=== PATIENT | female | born 1955 | race Caucasian/White ===

== ENCOUNTER 2022-04-21 08:23 | Outpatient (CLI) | payer OTHER, SELFPAY ==
[2022-04-21 16:23] LABS: Basophils Absolute Auto 0.05 K/uL (0.00-0.30); Basophils Percent Auto 0.7 % (0.0-3.0); Eosinophils Absolute Auto 0.26 K/uL (0.00-0.50); Eosinophils Percent Auto 3.4 % (0.0-7.0); Hematocrit 43.4 % (33.0-51.0); Hemoglobin* 14.6 gm/dL (12.0-16.0); Immature Granulocytes Abs Auto 0.01 K/uL (0.00-0.30); Immature Granulocytes Pct Auto 0.1 %; Lymphocytes Percent Auto 17.5 % (20-44); Mean Corpuscular HGB Conc 34 gm/dL (32-36); Mean Corpuscular Hemoglobin 32 pg (26-34); Mean Corpuscular Volume 95 fL (80-100); Monocytes Percent Auto 9.3 % (0.0-11.0); Neutrophils Absolute Auto 5.21 K/uL (1.7-7.0); Platelet Count* 327 K/uL (140-440); RDW Coefficient of Variation % 12.9 % (11.5-15.5); Red Blood Count 4.55 m/uL (4.00-5.20); White Blood Count* 7.55 K/uL (4.50-11.00)
[2022-04-21 16:34] LABS: Slide Review Reflex No
[2022-04-21 16:35] LABS: Cholesterol* 201 mg/dL (90-199); Glucose* 99 mg/dL (60-115)
[2022-04-21 16:36] LABS: HDL Cholesterol* 70 mg/dL (>=50); LDL Cholesterol Calculated 116 mg/dL (<100); Triglycerides* 70 mg/dL (40-149)
== END 2022-04-21 08:24 | disposition home or self-care (01) ==
PROVIDERS: PCP Nurse Practitioner Family; Visit Provider Nurse Practitioner Family
DX: E78.9 Disorder of lipoprotein metabolism, unspecified (principal); Z13.0 Encounter for screening for diseases of the blood and blood-forming organs and certain disorders involving the immune mechanism; Z13.1 Encounter for screening for diabetes mellitus
CPT/HCPCS: 80061; 82947; 85025

== ENCOUNTER 2022-06-30 08:03 | Outpatient (CLI) | payer OTHER, SELFPAY ==
--- NOTE | 2022-06-30 08:15 | CRLHL7_ITS ---
For Patients: As a result of the Cures Act, medical imaging exams and procedure reports are released immediately into your electronic medical record. You may view this report before your referring provider. If you have questions, please contact your health care provider. BILATERAL SCREENING MAMMOGRAM WITH COMPUTER-AIDED DETECTION AND TOMOSYNTHESIS TECHNIQUE: CC and MLO views were obtained. These mammographic images have been obtained using full-field digital technique. These mammographic images were interpreted with the benefit of computer-aided detection. Breast Tomosynthesis was used in this interpretation. COMPARISON FILM: 06/09/21, 04/19/18, 11/03/15. FINDINGS: The breasts are heterogeneously dense, which may obscure small masses IMPRESSION: There is no radiographic evidence for malignancy. ASSESSMENT: BI-RADS Category 2: Benign RECOMMENDATION: Routine screening mammogram in 1 year. A lay language report of this examination will be provided to the patient. Bina Coats M.D. Diagnostic/Breast Radiologist [email or web address] GEORGETTE/lee ann Transcribed: 1:17 p.lisa nance/Dictated by: Bina Coats MD @ 06/30/2022 9:26:00 AM (Electronically Signed)
== END 2022-06-30 08:04 | disposition home or self-care (01) ==
LOC: MAMMO 08:09
PROVIDERS: PCP Nurse Practitioner Family; Visit Provider Nurse Practitioner Family
DX: Z12.31 Encounter for screening mammogram for malignant neoplasm of breast (principal); R92.2 Inconclusive mammogram
CPT/HCPCS: 77063; 77067

== ENCOUNTER 2023-05-22 08:28 | Outpatient (CLI) | payer MEDICARE, BC, SELFPAY ==
--- OUTSIDE RECORDS SUMMARY | 2023-05-22 08:39 | XMS_ITS | Encounter Summary ---
Author Name Unknown Organization [facility] er Address [address] [place] [address] Care Team Providers Care Lead Vulcanizing Operator Name Role Phone Arden Solis MD Primary Care Provider [phone] Reason for Visit * Reason Comments ECG test Encounter Details Date Type Department Care Team (Late st Contact Info) Description 02/21/2023 9:00 AM CDT Procedure visit [facility] [address] [place] [address] Pre-op evaluation Social History Tobacco Use Types Packs/Day Years Used Date Smoking Tobacco: Never Smokeless Tobacco: Never Alcohol Use Standard Drinks/Week Comments Yes 4 (1 standard drink = 0.6 oz pur e alcohol) occasional Humiliation, Afraid, Rape, and Kick questionnair e Answer Date Recorded Fear of Current or Ex-Partner No Emotionally Abused No 11/14/2018 Physically Abused No 11/14/2018 Sexually Abused No 11/14/2018 Social Connection and Isolat ion Panel [NHANES] Answer Date Recorded Frequency of Communication w ith Friends and Family More than three times a week 11/14/2018 Frequency of Social Gatherin gs with Friends and Family Once a week 11/14/2018 Attends Gnosticist Services Never 11/14 Active Member of Clubs or Organizations No 11/14/2018 Attends Club or Organization Meetings Never 11/14/2018 Marital Status 11/14/2018 AUDIT-C Answer Date Recorded Frequency of Alcohol Consumption Never 03/19/2018 Average Number of Drinks Not on file 018 Frequency of Binge Drinking Not on file 03/07 Overall Financial Resource Strain (CARDIA) Answe r Date Recorded Difficulty of Paying Living Expenses Not hard at all 11/14/2018 PHQ-2 Answer Date Recorded PHQ-9 Total Score 0 10/22/2020 [facility] - Occupational Stress Questionnaire Answer Date Recorded Feeling of Stress Not at all 11/14/2018 Exercise Vital Sign Answer Date Recorde d Days of Exercise per Week 5 days 2018 Minutes of Exercise per Session 40 min 11/14/2018 Hunger Vital Sign Answer Date Recorded Worried About Running Out of Food in the Last Ye ar Never true 11/14/2018 Ran Out of Food in the Last Year Never true 11/14/2018 PRAPARE - Transportation Answer Date Re corded Lack of Transportation (Medical) No 11/14/2018 Lack of Transportation (Non-Medical) No 11/14/2018 Education Answer Date Recorded What is the highest level of school you have completed or the highest degree you have received? Associate degree: occupational, technical, or vocational program 11/14/2018 Sex and Gender Information Value Date Recorded Sex Assigned at Not on file Gender Identity Not on file Sexual Orientation Not on file documented as of this encounter Progress Notes * Debi Tsang RN - 02/21/2023 9:00 AM CDT Nurse Procedure Note Procedures ECG done, and patient tolerated it well. ECG transmitted to cardiology per order of Dr. Baeza. Patient denied any chest pain, shortness of breath, palpitations, and dizziness. documented in this encounter Plan of Treatment Not on file documented as of this encounter Procedures Procedure Name Priority Date/Time Associated Diagnosis Comments ECG 12-LEAD Routine 02/21/2023 Pre-op evaluation documented in this encounter Results * ECG 12 lead (02/21/2023) Santiago Baeza MD ECG ORDERABLES [facility] documented in this encounter Visit Diagnoses Diagnosis Pre-op evaluation documented in this encounter Care Teams Lead Vulcanizing Operator Relationship Specialty Start Date End Date Arden Solis MD [address] [place] [address] PCP - General 08/23/21 documented as of this encounter
--- OUTSIDE RECORDS SUMMARY | 2023-05-22 08:39 | XMS_ITS | Encounter Summary ---
Author Name Unknown Organization [facility] er Address [address] [place] [id number] Care Team Providers Care Hand Therapist Name Role Phone Arden Solis MD Primary Care Provider [phone] Reason for Visit * Auth/Cert (Routine) Specialty Diagnoses / Procedures Referred By Contac t Referred To Contact Diagnoses Hammertoe of second toe of left foot Bunion of left foot Hammertoe of second toe of left foot [M20.42] Bunion of left foot [M21.612] Procedures HAMMERTOE REPAIR 2nd toe left foot OSTEOTOMY METATARSAL 2nd left foot BUNIONECTOMY SILVER left foot Referral ID Status Reason Start Date Expiration Date Visits Re quested Visits Authorized [id number] 1 1 Encounter Details Date Type Department Care Team (Latest Contact Info) Description 03/09/2023 10:41 AM CDT - 03/09/2023 3:54 PM CDT Hospital Encounter [facility] Hospital Operating Room [address] [place] [id number] Lalit Sorensen, DPYeimi [address] [place] [phone] Hav (hallux abducto valgus), left (Primary Dx) Discharge Disposition: Home or Self Care Social History Tobacco Use Types Packs/Day Years [...] and Family Once a week 11/14/2018 Attends [employer] Never 11/14 Active Member of Clubs [...] Date Recorded PHQ-9 Total Score 0 10/22/2020 [facility] - Occupational [...] on file documented as of this encounter Last Filed Vital Signs Vital Sign Reading Time Taken Comments Blood Pressure 145/74 03/09/2023 3:30 PM CDT Pulse 60 03/09/2023 3:30 PM CDT Temperature 36.6 ??C (97.9 ??F) 03/09/2023 2:55 PM CD T Respiratory Rate 16 03/09/2023 3:30 PM CDT Oxygen Saturation 96% 03/09/2023 3:30 PM CDT Inhaled Oxygen Concentration - - Weight 67.1 kg (147 lb 14.9 oz) 023 10:53 AM CDT Height - - Body Mass Index 23.22 02/21/2023 8:09 AM CDT documented in this encounter Discharge Instructions * Attachments The following attachments cannot be sent through Care Everywhere. * [facility] - AFTER YOUR FOOT/ANKLE SURGERY documented in this encounter Medications at Time of Discharge Medication Sig Dispensed Refills Start Date End Date albuterol HFA (Ventolin HFA) 108 (90 Base) MCG/ACT inhalerIndications:Cough Inhale 2 puffs every 6 (six) hours if needed (cough) 2 puffs q 4-6 hours as needed 18 g 0 10/07/2019 alendronate (FOSAMAX) 70 MG tablet Take 1 tablet (70 mg total) by mouth 1 (one) time per week 0 12/07/2022 BIOTIN PO Take 6,000 mcg by mouth 1 (one) time each day 0 CALCIUM PO Take 400 mg by mouth daily 0 FISH OIL-KRILL OIL PO Take 2 tablets by mouth 1 (one) time each day supplement 0 Magnesium 125 MG capsule Take 1 capsule by mouth 1 (one) time each day 0 Multiple Vitamins-Minerals (WOMENS PACK PO) Take 1 tablet by mouth 1 (one) time each day 0 TURMERIC PO Take 1,100 mg by mouth 1 (one) time each day 0 documented as of this encounter OR Notes * Op Note - Lalit Sorensen DPM - 03/09/2023 12:36 PM CDT Operative Note Date: 03/09/2023 Location: [facility] OR Name: Dipika Alexis, : 1955, Diagnosis Pre-op Diagnosis * Hammertoe of second toe of left foot [M20.42] * Bunion of left foot [M21.612] Post-op Diagnosis * Hammertoe of second toe of left foot [M20.42] * Bunion of left foot [M21.612] Preliminary CPT code(s): No CPT code documented in operative note Procedure(s): HAMMERTOE REPAIR, OSTEOTOMY METATARSAL, BUNIONECTOMY SILVER left foot Surgeon(s) and Role: * Lalit Sorensen DPM - Primary Procedure Summary Anesthesia: Monitored Anesthesia Care ASA: II Estimated Blood Loss: 5 mL Staff: Steel Pan Form Placing Supervisor: Lidya Amaro Steel Pan Form Placing Supervisor: DARIUSZ Lowe Scrub Person: Caterina Patterson; Aurora Cunninghamcheli Indications: Dipika Alexis is an 67 y.o. female who is having surgery for Hammertoe of second toe of left foot [M20.42] Bunion of left foot [M21.612]. Field Artillery Operations Specialist Role: None Intraoperative Findings: Hallux rigidus left , hds 2nd toe left foot , plantar plate tear 2nd mpj left foot Implants Type Name Action Serial No. IMPLANT MEDIUM CANNULATED PHALINX HAMMERTOE - [id number] Implanted Procedure Details: Patient brought the operating placed operating table supine position IV line intact for MAC anesthesia local anesthetic administered utilizing approximately 20 cc 0.5 smirking 2% lidocaine with localattrition block to the left foot foot prepped and draped usual aseptic manner and hemostasis achieved lysing pneumatic tourniquet about the left ankle attention directed dorsal medial aspect the leftfirst MPJ linear longitudinal incision made incision deepened via sharp dissection care taken to retract any vital structures a bleeders cut cauterized ligated carried deep to the first MPJ where thedorsal medial exostosis was resected power sagittal saw rongeured and rasped smooth rigidus noted but almost a complete fusion and patient has no pain in the MPJ and the remaining joint was left intact closure was completed with 4-0 Vicryl subcu closure 4-0 Vicryl skin closure 4-0 nylon directed second MPJ linear longitudinal incision made extending to the second hammertoe incision deepened via sharp dissection care taken to retract any vital structures any bleeders cut cauterized ligated sandra d deep to the second metatarsal phalangeal joint the incision was deepened to the second MPJ capsule second metatarsal delivered operative field dorsal medial exostosis resected osteotomy completed and the capital fragment transposed proximally the distractor put in place and the plantar plate tearwas identified isolated and sutures were placed to the plantar plate 2 holes were drilled in the proximal phalanx and the suture lines were run through the proximal phalanx with 3 opposition of the plantar plate to the phalanx and a complete repair bruise were then placed in the metatarsal head forfixation of the osteotomy with 2 breakaway screws and the area was rongeured dressed smooth closurecompleted with 4-0 Vicryl subcu closure 4-0 Vicryl skin closure 4-0 nylon attention directed to hammertoe where a incision was made at the PIPJ joint the head of the proximal phalanx resected and thebase of the middle phalanx resected reaming of the proximal and distal aspects was completed and the hammertoe implant phalanx was placed in after wire was placed visualization with C arm showed good apposition good alignment K wire was driven through the implant and capped the closure was then completed with 4-0 nylon and Adaptic sterile compression dressing was applied to the left foot the tourniquet warmth and perfusion return all digits simultaneously patient procedure anesthesia well return postanesthesia recovery vital signs stable stable condition visualization with C arm showed good apposition good alignment Complications: None; patient tolerated the procedure well. Disposition: PACU - hemodynamically stable. Condition: stable Lalit Sorensen DPM * Brief Op Note - Lalit Sorensen DPM - 03/09/2023 12:36 PM CDT Date: 03/09/2023 Location: [facility] OR Name: Dipika Alexis, : 1955, Diagnosis Pre-op Diagnosis * Hammertoe of second toe of left foot [M20.42] * Bunion of left foot [M21.612] Post-op Diagnosis * Hammertoe of second toe of left foot [M20.42] * Bunion of left foot [M21.612] Preliminary CPT code(s): No CPT code documented in operative note Procedure(s): HAMMERTOE REPAIR, OSTEOTOMY METATARSAL, BUNIONECTOMY SILVER left foot Surgeon(s) and Role: * Lalit Sorensen DPM - Primary Procedure Summary Anesthesia: Monitored Anesthesia Care ASA: II Estimated Blood Loss: 5 mL Staff: Steel Pan Form Placing Supervisor: Lidya Greene Relief Steel Pan Form Placing Supervisor: DARIUSZ Lowe Scrub Person: Caterina Patterson; Aurora Carvalho Indications: Dipika Alexis is an 67 y.o. female who is having surgery for Hammertoe of second toe of left foot [M20.42] Bunion of left foot [M21.612]. Findings: Hallux rigidus with dorsal medial exostosis , HDS 2nd toe left with plantar plate tear 2nd mpj left foot Complications: None; patient tolerated the procedure well. Disposition: PACU - hemodynamically stable. Condition: stable Attending Attestation: I was present and scrubbed for the entire procedure. Lalit Sorensen DPM documented in this encounter Plan of Treatment Not on file documented as of this encounter Procedures Procedure Name Priority Date/Time Associated Diagnosis Comments FL C-ARM FLUOROSCOPY UP TO 1 HOUR Routine 03/09/2023 2:54 PM CDT BUNIONECTOMY SILVER 03/09/2023 1 2:36 PM CDT Hammertoe of second toe of left foot Bunion of left foot Special Needs *Times given 03/08 SE* *Joe Garcia notified 02/26 SE* BILL toe implants , naheed repair kit OSTEOTOMY METATARSAL 03/09/2023 12:36 PM CDT Hammertoe of second toe of left foot Bunion of left foot Special Needs *Times given 03/08 SE* *Joe Garcia notified 02/26 SE* BILL toe implants , naheed repair kit HAMMERTOE REPAIR 03/09/2023 12:3 6 PM CDT Hammertoe of second toe of left foot Bunion of left foot Special Needs *Times given 03/08 SE* *Joe Garcia notified 02/26 SE* BILL toe implants , naheed repair kit documented in this encounter Results * C-arm Fluoroscopy up to 1 hour (03/09/2023 2:54 PM CDT) Anatomical Region Laterality Modality Body Radiographic Claire ging 03/09/2023 2:54 PM CDT Impressions 03/09/2023 3:08 PM CDT IMPRESSION: C-ARM FLUOROSCOPY UP TO 1 HOUR 3 seconds of fluoroscopy time was used. Narrative 03/09/2023 3:08 PM CDT INDICATION: Intra Op Procedure Note Radha Cohen MD - 03/09/2023 INDICATION: Intra Op IMPRESSION: C-ARM FLUOROSCOPY UP TO 1 HOUR 3 seconds of fluoroscopy time was used. Lalit Jimenez Edu DPYeimi IMG FLUOROSCOPY [place] OCEDURES documented in this encounter Visit Diagnoses Diagnosis Hav (hallux abducto valgus), left- Primary documented in this encounter Administered Medications Inactive Administered Medications - up to 3 most recent administrations Medication Order MAR Action Action Date Dose Rate Site aprepitant (EMEND) capsule 40 mg 40 mg, Oral, Once, On Sun03/09/23 at 1230, For 1 dose, Preprocedure Given 03/09/2023 11:57 AM CDT 40 mg lactated Ringer's infusion 75 mL/hr, Intravenous, Continuous, Starting on Sun03/09/23 at 1130, For 5 days New Bag 03/09/2023 2:07 PM CDT Continued from Pre 03/09/2023 12:35 PM CDT 75 m L/hr New Bag 03/09/2023 11:10 AM CDT 75 mL/hr 75 mL/hr lidocaine 1% (XYLOCAINE) 1 % injection 10 mg 10 mg (1 mL), Subcutaneous, Once as needed, For IV start, Starting on Sun03/09/23 at 1047, For 5 days, Preprocedure oxyCODONE (ROXICODONE) immediate release tablet 5 mg 5 mg, Oral, Every 4 hours PRN, Pain 1-5, Starting on Sun03/09/23 at 1454, For 10 days, Phase II/On Unit, 1st Line. If inadequate response within 60 minutes, proceed to next-line agent for same PRN reason or contact provider if no further options ordered. Given 03/09/2023 3:06 PM CDT 5 mg sodium chloride 0.9 % flush 2 mL 2 mL, Intravenous, Every 8 hours PRN, line care, Starting on Sun03/09/23 at 1047, For 5 days, Preprocedure documented in this encounter Active and Recently Administered Medications Times are shown in CDT. Scheduled Medication Order 03/07/2023 03/08/2023 03/09/2023 aprepitant (EMEND) capsule 40 mg (COMPLETED) 40 mg, Oral, Once, On Sun03/09/23 at 1230, For 1 dose, Preprocedure 1157 (Given - Provid er: Lorna Brown, TYRA) cefazolin (ANCEF) IVPB 2 g in 100 mL - premix (COMPLETED) 2 g, Intravenous, Administer over 30 Minutes, Once, On Sun03/09/23 at 1330, For 1 dose, Preprocedure, Administer within 60 minutes of incision., Indication: Surgical Site 1247 (Given - Provid er: Marcel Garrison APRN, JOSEFINA) Continuous Medication Order 03/07/2023 03/08/2023 03/09/2023 lactated Ringer's infusion 75 mL/hr, Intravenous, Continuous, Starting on Sun03/09/23 at 1130, For 5 days 1110 (New Bag - Prov ider: Anna Dang RN)1235 (Continued from Pre - Provider: Marcel Garrison APRN, JOSEFINA)1406 (Paused - Provider: Marcel Garrison APRN, CRNA - Comment: Switch to gravity)1407 (New Bag - Provider: aMrcel Garrison APRN, JOSEFINA)1453 (Anesthesia Volume Adjustment - Provider: FREDDIE Machado,[place],JOSEFINA) PRN Medication Order 03/07/2023 03/08/2023 03/09/2023 Bupivacaine 0.5% with Lidocaine 2% MIXED 1:1 in 20 mL (CANCELED) As needed, Starting on Sun03/09/23 at 1308, Intraprocedure 1308 (Given - Provid er: Lalit Sorensen DPM - Comment: Wasted remaining medication) lidocaine 1% (XYLOCAINE) 1 % injection 10 mg(Linked Group 1) 10 mg (1 mL), Subcutaneous, Once as needed, For IV start, Starting on Sun03/09/23 at 1047, For 5 days, Preprocedure oxyCODONE (ROXICODONE) immediate release tablet 5 mg 5 mg, Oral, Every 4 hours PRN, Pain 1-5, Starting on Sun03/09/23 at 1454, For 10 days, Phase II/On Unit, 1st Line. If inadequate response within 60 minutes, proceed to next-line agent for same PRN reason or contact provider if no further options ordered. 1506 (Given - Provid er: Anna Dang, TYRA) sodium chloride 0.9 % flush 2 mL(Linked Group 1) 2 mL, Intravenous, Every 8 hours PRN, line care, Starting on Sun03/09/23 at 1047, For 5 days, Preprocedure Linked Groups Order Group 1: Insert peripheral IV (CANCELED) Once, On Sun03/09/23 at 1048, For 1 occurrence, Preprocedure And Maintain IV access (CANCELED) Until discontinued, Starting on Sun03/09/23 at 1048, Until Specified, Preprocedure And Saline lock IV (CANCELED) Once, On Sun03/09/23 at 1048, For 1 occurrence, Preprocedure And sodium chloride 0.9 % flush 2 mLJump to med 2 mL, Intravenous, Every 8 hours PRN, line care, Starting on Sun03/09/23 at 1047, For 5 days, Preprocedure And lidocaine 1% (XYLOCAINE) 1 % injection 10 mgJump to med 10 mg (1 mL), Subcutaneous, Once as needed, For IV start, Starting on Sun03/09/23 at 1047, For 5 days, Preprocedure documented in this encounter Care Teams Hand Therapist Relationship Specialty Start Date End Date Arden Solis MD [address] [place] [address] PCP - General 08/23/21 documented as of this encounter
--- OUTSIDE RECORDS SUMMARY | 2023-05-22 08:39 | XMS_ITS | Encounter Summary ---
Author Name Unknown Organization [facility] er Address [address] [place] [address] Care Team Providers Care Local Operator Name Role Phone Arden Solis MD Primary Care Provider [phone] Reason for Visit * Reason Comments Pre-op Exam Encounter Details Date Type Department Care Team (Late st Contact Info) Description 02/21/2023 8:20 AM CDT Consult [facility] [address] [place] [address] Santiago Baeza MD [address] [place] [address] Pre-op evaluation (Primary Dx) Social History Tobacco Use Types Packs/Day Years [...] and Family Once a week 11/14/2018 Attends [employer] Services Never 11/14 Active Member of Clubs [...] Date Recorded PHQ-9 Total Score 0 10/22/2020 [facility] - Occupational [...] Sign Reading Time Taken Comments Blood Pressure 137/83 02/21/2023 8:09 AM CDT Pulse 70 02/21/2023 8:09 AM CDT Temperature 36.6 ??C (97.8 ??F) 02/21/2023 8:09 AM CD T Respiratory Rate 16 02/21/2023 8:09 AM CDT Oxygen Saturation 98% 02/21/2023 8:09 AM CDT Inhaled Oxygen Concentration - - Weight 70.7 kg (155 lb 13.8 oz) 02/21/2023 8:09 AM CDT Height 170 cm (5' 6.93) 02/21/2023 8:09 AM CDT Body Mass Index 24.46 02/21/2023 8:09 AM CDT documented in this encounter Progress Notes * Santiago Baeza MD - 02/21/2023 8:20 AM CDT Assessment/Plan Dipika Alexis is an 67 y.o. female. Here for a preoperative evaluation for HAMMERTOE REPAIR 2nd toe left foot, OSTEOTOMY METATARSAL 2nd left foot, BUNIONECTOMY SILVER left foot, LEFT. This surgery is scheduled to be performed by surgeon Edu on 03/09. The preoperative risk assessment has determined the following: No contraindications to planned surgery Dipika was seen today for pre-op exam. Diagnoses and all orders for this visit: Pre-op evaluation (Primary) Hammertoe of second toe of left foot Bunion of left foot HPI: Patient has had problems with nausea with anesthesia. No recent respiratory illnesses. No fever or chills. Not coughing or short of breath. No chest pain. No nausea vomiting or diarrhea. Current Outpatient Medications: alendronate (FOSAMAX) 70 MG tablet, Take 1 tablet (70 mg total) by mouth 1 (one) time per week, Disp: , Rfl: BIOTIN PO, Take 6,000 mcg by mouth 1 (one) time each day, Disp: , Rfl: CALCIUM PO, Take 400 mg by mouth daily, Disp: , Rfl: FISH OIL-KRILL OIL PO, Take 2 tablets by mouth 1 (one) time each day supplement, Disp: , Rfl: Multiple Vitamins-Minerals (WOMENS PACK PO), Take 1 tablet by mouth 1 (one) time each day, Disp: , Rfl: TURMERIC PO, Take 1,100 mg by mouth 1 (one) time each day, Disp: , Rfl: albuterol HFA (Ventolin HFA) 108 (90 Base) MCG/ACT inhaler, Inhale 2 puffs every 6 (six) hours if needed (cough) 2 puffs q 4-6 hours as needed (Patient not taking: Reported on 02/21/2023), Disp: 18 g, Rfl: 0 fluticasone (FLONASE) 50 MCG/ACT nasal spray, Administer 2 sprays into each nostril 1 (one) time each day (Patient not taking: Reported on 02/21/2023), Disp: 16 g, Rfl: 11 Magnesium 125 MG capsule, Take 1 capsule by mouth 1 (one) time each day (Patient not taking: Reported on 10/22/2020), Disp: , Rfl: montelukast (Singulair) 10 MG tablet, Take 1 tablet (10 mg total) by mouth 1 (one) time each day (Patient not taking: Reported on 02/21/2023), Disp: 90 tablet, Rfl: 3 Allergies: Patient has no known allergies. Past Surgical History: Procedure Laterality Date BUNIONECTOMY Bilateral CARPAL TUNNEL RELEASE THUMB ARTHROSCOPY Past Medical History: Diagnosis Date Arthritis Osteoporosis Varicella Visual impairment Family History Problem Relation Age of Onset Diabetes Mother Hypertension Mother Diabetes Brother Social History Socioeconomic History Marital status: Spouse name: Sudarshan Number of children: 2 Years of education: 12 Highest education level: Associate degree: occupational, technical, or vocational program Occupational History Occupation: [employer] Tobacco Use Smoking status: Never Smokeless tobacco: Never Vaping Use Vaping Use: Never used Substance and Sexual Activity Alcohol use: Yes Alcohol/week: 4.0 standard drinks Types: 3 Glasses of wine, 1 Standard drinks or equivalent per week Comment: occasional Drug use: No Sexual activity: Yes Partners: Male Review of Systems Objective Pulmonary Risk SpO2: 98 % Visit Vitals BP 137/83 Pulse 70 Temp 36.6 ??C (97.8 ??F) Resp 16 Ht 1.7 m (5' 6.93) Wt 70.7 kg (155 lb 13.8 oz) SpO2 98% BMI 24.46 kg/m?? Smoking Status Never BSA 1.83 m?? Physical Exam Vital signs are as per the chart Physical examination in general patient pleasant no apparent distress Skin clear Head is normcephalic, atraumatic Eyes conjunctivae clear ENT tympanic membranes translucent, good landmarks bilaterally. Oropharnyx without lesions Neck supple Lymph no significant cervical or supraclavicular adenopathy Heart regular rhythm without murmurs gallops or rubs Lungs clear to auscultation bilaterally Radiology Tests to be Ordered: EKG sinus bradycardia Additional Tests to be Ordered: Laboratory Tests to be Ordered: Special Note to Anesthesia if needed: Referrals/Consultations: Immunizations: Tetanus Influenza Comments: You should not drive for at least 24 hours after your surgery, or as instructed by your surgeon. Do NOT take ibuprofen, Aleve and Aspirin 7 days prior to surgery. Do NOT take vitamins or other nutritional supplements 7 days prior to surgery. You will receive detailed instructions from your doctor about which of your usual medications to take and which NOT to take before surgery. If you have been instructed to take any medications on the morning of surgery, take them with a small sip of water. Otherwise, remember to follow fasting guidelines as given to you by your surgeon. If you have been told that you will be going home after surgery and not staying overnight in the hospital, remember to bring a friend or family member with you the day of surgery who can stay with you during your recovery period and who can drive you home. Medication Instructions: documented in this encounter Plan of Treatment Not on file documented as of this encounter Results * ECG 12 lead (02/21/2023) Santiago Baeza MD ECG ORDERABLES [facility] documented in this encounter Visit Diagnoses Diagnosis Pre-op evaluation- Primary documented in this encounter Care Teams Local Operator Relationship Specialty Start Date End Date Arden Solis MD [address] [place] [address] PCP - General 08/23/21 documented as of this encounter
--- OUTSIDE RECORDS SUMMARY | 2023-05-22 08:39 | XMS_ITS | Clinical Summary ---
Author Name Unknown Organization [facility] Address [address] [place] [address] Care Team Providers Care Can Crimper Name Role Phone Unavailable Primary Care Provider Unavailabl e Source Comments Patient records contain information from all sites at [facility]. For routine questions regarding patient records, call [phone] during business hours, M-F 8:00 AM - 5:00 PM Central Time. Record requests for emergency care only can be directed to [phone] at any time.[facility] Allergies No known active allergies Medications Medication Sig Dispensed Refills Start Date End Date Status albuterol 90 mcg/actuation inhaler Inhale 2 puffs every 6 (six) hours as needed. 0 10/07/2019 Active alendronate (FOSAMAX) 70 mg tablet Every 7 Days 0 06/13/2021 Active cholecalciferol (VITAMIN D3) 1,250 mcg (50,000 Unit) capsule 0 Active cholecalciferol (VITAMIN D3) 125 mcg (5,000 Unit) capsule Take 1 tablet by mouth. 0 Active loratadine-pseudoep hedrine (CLARITIN-D 12-hour) 5-120 mg per 12 hr tablet Twice A Day 0 06/13/2021 Active montelukast (SINGULAIR) 10 mg tablet Bedtime 0 02/02/2021 Active biotin (Nakul Biotin) 10,000 mcg capsule Take 6,000 mcg by mouth daily. A gummy 0 Active TURMERIC ORAL Take 1,000 mg by mouth daily. 0 Active calcium carbonate (CALCIUM 500 ORAL) Take 600 mg by mouth daily. 0 Active sodium chloride-sodium bicarbonate (Neilmed Sinus Rinse Complete) nasal rinseIndications:Dr ip Post Nasal Administer 1 Application into each nostril 2 (two) times a day. 1 each 0 04/16/2023 Active fluticasone propionate (FLONASE) 50 mcg/actuation nasal sprayIndications:Dr omid Valdez Nasal Administer 2 sprays into each nostril daily. 16 g 11 04/16/2023 Active carbamide peroxide (DEBROX) 6.5 % otic solutionIndications :Cerumen Impacted Right Administer 5 drops into the right ear 2 (two) times a day for 7 days. Then once weekly until ENT follow-up 0 04/16/2023 04/23/2023 Active Problems No known active problems Encounters Date Type Department Care Team Description 04/16/2023 9:05 AM DAY CARE ATTENDANT Ancillary Procedure Department of Otorhinolaryngology 04/16/2023 8:30 AM DAY CARE ATTENDANT Comprehensive Visit Department of Otorhinolaryngology in [address] [phone] Manjeet Mobley M.D. Atypical Facial Pain (Primary Dx); Drip Post Nasal; Cerumen Impacted Right Discharge Disposition: Home or Self Care 04/12/2023 10:30 AM DAY CARE ATTENDANT Office Visit Department of Ophthalmology in [place], [place] [address] [place] [phone] Kevin Ceja M.D. 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 Tear Horseshoe Without Retinal Detachment Left (Primary Dx) 03/02/2023 Clinical Communication Department of Ophthalmology in [place], [place] [address] [place] [address] Prescheduling , Provider Triage (uec) from Last 3 Months Social History Tobacco Use Types Packs/Day Years Used Date Smoking Tobacco: Never Smokeless Tobacco: Never Tobacco Cessation:Counseling Given: Not Answered Alcohol Use Standard Drinks/Week Comments Yes 1 (1 standard drink = 0.6 oz pur e alcohol) per week Nutrition Answer Date Recorded Nutrition: EVOO Fat Source Unknown 08/01 Nutrition: Servings of Fruits/Vegetables per Day Not on file 08/01/2021 Dental Answer Date Recorded Dental: Regular Dentist Unknown 08/02/19 Sex and Gender Information Value Date Recorded Sex Assigned at Not on file Gender Identity Not on file Sexual Orientation Not on file Last Filed Vital Signs Vital Sign Reading Time Taken Comments Blood Pressure 120/68 08/23/2021 1:08 PM CDT Pulse 79 08/23/2021 1:08 PM CDT Temperature - - Respiratory Rate - - Oxygen Saturation - - Inhaled Oxygen Concentration - - Weight 70.8 kg (156 lb 1.4 oz) 08/23/2021 1:08 P M CDT Height 170.8 cm (5' 7.24) 08/23/2021 1:08 PM CD T Body Mass Index 24.27 08/23/2021 1:08 PM CDT Plan of Treatment Upcoming Encounters Date Type Department Care Team (Latest Contact Info) Description 06/18/2023 9:00 AM DAY CARE ATTENDANT Office Visit Department of Otorhinolaryngology in [place], [place] [facility] [place] [phone] Manjeet Mobley M.D. [address] [place] [phone] Discharge Disposition: Home or Self Care Health Maintenance Due Date Last Done Comments CT Colonography 1955 Cologuard 1955 Colonoscopy 1955 Colorectal Cancer Screening 1955 FIT 1955 Fasting Glucose for Diabetes Screening 1955 Hepatitis C Screening 1955 COVID-19 Vaccine (#1) 03/10/1956 Mammogram 08/26/1999 08/25/1998 Zoster Vaccines (2 of 3) 12/28/2015 11/02/2015 Influenza Vaccine (#1) 2023 Depression Screening (Annual PHQ-2) 05/07/2023 Fall Risk Screen (Annual) 05/07/2023 DTaP,Tdap,and Td Vaccines (2 - Td or Tdap) 11/18/2023 11/17/2013, 08/06/2003 Pneumococcal vaccine (65+ years) Completed 04/21/20 22 Procedures Procedure Name Priority Date/Time Associated Diagnosis Comments OTORHINOLARYNGOLOGY IMAGE EXAM Routine 04/16/2023 9:05 AM DAY CARE ATTENDANT PROPHYLAXIS OF RETINAL DETACHMENT, LASER - OS - LEFT EYE Routine 03/02/2023 5:22 PM CDT Tear Horseshoe Without Retinal Detachment Left OPHTHALMOLOGY IMAGE EXAM Routine 023 12:00 AM CDT from Last 3 Months Results * Otorhinolaryngology Image Exam-Otorhinolaryngology Image Exam (04/16/2023 9:05 AM DAY CARE ATTENDANT) 04/16/2023 9:04 AM DAY CARE ATTENDANT Narrative [facility] - 04/16/2023 9:41 AM DAY CARE ATTENDANT This order has been created and auto-finalized to support the import of images acquired without order. The clinical documentation to support these images can be found on the encounter that produced images. Provider Not In System IMG NON RAD IMAGI NG PROCEDURES [facility] NA * Prophylaxis of Retinal Detachment, Laser - OS - Left Eye (03/02/2023 5:22 PM CDT) Narrative [facility] OPHTHALMOLGY NON-IMAGING ORDERS - 03/02/2023 5:22 PM CDT Time Out Confirmed correct patient, procedure, site, and patient consented. Anesthesia Topical anesthesia was used. Pre/Post Procedure prep and meds used were Proparacaine 0.5% 1-10 drops. Laser Information Laser power was 300.00 milliwatts. Total spots was 412. It was a barricade pattern. Post-op The patient tolerated the procedure well. There were no complications. The patient received written and verbal post procedure care education. Kevin Ceja M.D. OPHTH CLINIC PROCED URES Performing Organization Address City/[facility]/ZIP Co de Phone Number OPHTHALMOLGY NON-IMAGING ORDERS * Unspecified-Ophthalmology Image Exam (03/02/2023 12:00 AM CDT) Narrative [facility] - 03/02/2023 3:27 PM CDT This order has been created and auto-finalized to support the import of images acquired without order. The clinical documentation to support these images can be found on the encounter that produced images. Provider Not In System IMG NON RAD IMAGI NG PROCEDURES Performing Organization Address [facility] Co de Phone Number [facility] NA from Last 3 Months
--- OUTSIDE RECORDS SUMMARY | 2023-05-22 08:39 | XMS_ITS | Encounter Summary ---
Author Name Unknown Organization [facility] [place] er Address [address] [place] [address] Care Team Providers Care Study Lead Name Role Phone Arden Solis MD Primary Care Provider [phone] Reason for Visit * Auth/Cert (Routine) Specialty [...] Expiration Date Visits Re quested Visits Authorized [id number] 1 Encounter Details Date Type Department Care Team (Late st Contact Info) Description 03/09/2023 12:35 PM CDT - 03/09/2023 4:25 PM CDT Surgery [facility] Operating Room [address] [place] [address] Lalit Sorensen, DPYeimi [address] [place] [phone] HAMMERTOE REPAIR 2nd toe left foot Surgery Details Date/Time Status Location OR Service Patient Class Case Cl ass Case Type Trauma Case? 03/09/23 12:35 PM Posted [facility] - Elective Panel 1 Procedure LRB Anes Op Region Wound Class Comments HAMMERTOE REPAIR 2nd toe left foot Left Monitored Anesthesia Care Class I/ Clean OSTEOTOMY METATARSAL 2nd left foot Left Monitored Anesthesia Care Class I/ Clean BUNIONECTOMY SILVER left foot Left Monitored Anesthesia Care Class I/ Clean Surgeon Surgeon Role Service Panel Lalit Sorensen, DPYeimi Primary Podiatry 1 Special Needs *Times given 03/08 SE* *Joe Garcia notified 02/26 SE* BILL toe implants , naheed repair kit documented in this encounter Social History Tobacco Use Types Packs/Day Years [...] and Family Once a week 11/14/2018 Attends [employer] Services Never 11/14 Active Member of Clubs [...] Date Recorded PHQ-9 Total Score 0 10/22/2020 [facility] Occupat ional Health - Occupational [...] cannot be sent through Care Everywhere. * [facility] - AFTER YOUR FOOT/ANKLE SURGERY [...] PM CDT Operative Note Date: 03/09/2023 Location: [facility] OR Name: Dipika Alexis, : 1955, Diagnosis [...] II Estimated Blood Loss: 5 mL Staff: Inside Trucker: Lidya Greene Relief Inside Trucker: DARIUSZ Lowe Scrub Person: Caterina Patterson; Aurora Carvalho Indications: Dipika Alexis is an 67 y.o. female who is having surgery for Hammertoe of second toe of left foot [M20.42] Bunion of left foot [M21.612]. Butcher Fish Role: None Intraoperative Findings: Hallux rigidus left , hds 2nd toe left foot , plantar plate tear 2nd mpj left foot Implants Type Name Action Serial No. IMPLANT MEDIUM CANNULATED PHALINX VAISHNAVI - [id number] Implanted Procedure Details: Patient brought the operating [...] 03/09/2023 12:36 PM CDT Date: 03/09/2023 Location: [facility] OR Name: Dipika Alexis, : 1955, Diagnosis [...] II Estimated Blood Loss: 5 mL Staff: Inside Trucker: Lidya Greene Relief Inside Trucker: DARIUSZ Lowe Scrub Person: Caterina Patterson; Aurora [...] seconds of fluoroscopy time was used. Lalit Sorensen DPYeimi IMG FLUOROSCOPY VT OCEDURES documented in this encounter Visit Diagnoses Diagnosis Hav (hallux abducto valgus), left- Primary Hammertoe of second toe of left foot Bunion of left foot Bunion documented in this encounter Administered Medications Inactive Administered Medications - up to 3 most recent administrations Medication Order MAR Action Action Date Dose Rate Site aprepitant (EMEND) capsule 40 mg 40 mg, Oral, Once, On Sun03/09/23 at 1230, For 1 dose, Preprocedure Given 03/09/2023 11:57 AM CDT 40 mg Bupivacaine 0.5% with Lidocaine 2% MIXED 1:1 in 20 mL As needed, Starting on Sun03/09/23 at 1308, Intraprocedure Given 03/09/2023 1:08 PM CDT 20 mL lactated Ringer's infusion 75 mL/hr, Intravenous, Continuous, [...] Preprocedure 1157 (Given - Provid er: Lorna Brown RN) cefazolin (ANCEF) IVPB 2 g in 100 mL - premix (COMPLETED) 2 g, Intravenous, Administer over 30 Minutes, Once, On Sun03/09/23 at 1330, For 1 dose, Preprocedure, Administer within 60 minutes of incision., Indication: Surgical Site 1247 (Given - Provid er: Marcel Garrison APRN, CRNA) Continuous Medication Order 03/07/2023 03/08/2023 03/09/2023 lactated Ringer's infusion 75 mL/hr, Intravenous, Continuous, Starting on Sun03/09/23 at 1130, For 5 days 1110 (New Bag - Prov ider: Anna Dang RN)1235 (Continued from Pre - Provider: Marcel Garrison APRN, JOSEFINA)1406 (Paused - Provider: Marcel Garrison APRN, CRNA - Comment: Switch to gravity)1407 (New Bag - Provider: Marcel F. Bladimir, SECRETARY OFFICE CLERK, LINE WALKER)1453 (Anesthesia Volume Adjustment - Provider: FREDDIE Machado,SECRETARY OFFICE CLERK,LINE WALKER) PRN Medication Order 03/07/2023 03/08/2023 03/09/2023 Bupivacaine [...] ordered. 1506 (Given - Provid er: Anna Dang RN) sodium chloride 0.9 % flush 2 mL(Linked [...] Preprocedure documented in this encounter Care Teams Study Lead Relationship Specialty Start Date End Date Arden Solis MD [address] [facility] [address] [place] [address] PCP - General 08/23/21 documented as of this encounter
--- OUTSIDE RECORDS SUMMARY | 2023-05-22 08:39 | XMS_ITS | Encounter Summary ---
Author Name Unknown Organization [facility] er Address [address] [place] [address] Care Team Providers Care Hydroelectric Plant Mechanical Engineer Name Role Phone Arden Solis MD Primary Care Provider [phone] Encounter Details Date Type Department Care Team (Latest Contact Info) Description 03/09/2023 Travel Social History Tobacco Use Types Packs/Day Years [...] and Family Once a week 11/14/2018 Attends [employer] Services Never 11/14 Active Member of Clubs [...] Date Recorded PHQ-9 Total Score 0 10/22/2020 [facility] - Occupational Stress [...] on file documented as of this encounter Plan of Treatment Not on file documented as of this encounter Visit Diagnoses Not on filedocumented in this encounter Care Teams Hydroelectric Plant Mechanical Engineer Relationship Specialty Start Date End Date Arden Solis MD [address] [place] [address] PCP - General 08/23/21 documented as of this encounter
--- OUTSIDE RECORDS SUMMARY | 2023-05-22 08:39 | XMS_ITS | Clinical Summary ---
Author Name Unknown Organization [facility] er Address [address] [place] [address] Care Team Providers Care Sanitarian Inspector Name Role Phone Arden Solis MD Primary Care Provider [phone] Allergies No known active allergies Medications Medication Sig Dispensed Refills Start Date End Date Status FISH OIL-KRILL OIL PO Take 2 tablets by mouth 1 (one) time each day supplement 0 Active Multiple Vitamins-Minerals (WOMENS PACK PO) Take 1 tablet by mouth 1 (one) time each day 0 Active Magnesium 125 MG capsule Take 1 capsule by mouth 1 (one) time each day 0 Active albuterol HFA (Ventolin HFA) 108 (90 Base) MCG/ACT inhalerIndications:Co ugh Inhale 2 puffs every 6 (six) hours if needed (cough) 2 puffs q 4-6 hours as needed 18 g 0 10/07/2019 Active Additional Information Patient not taking.Reported on 02/21/2023 fluticasone (FLONASE) 50 MCG/ACT nasal sprayIndications:Nasa l congestion Administer 2 sprays into each nostril 1 (one) time each day 16 g 11 10/25/2020 Active Additional Information Patient not taking.Reported on 02/21/2023 montelukast (Singulair) 10 MG tabletIndications:All ergic rhinitis, unspecified seasonality, unspecified trigger,Allergic conjunctivitis of both eyes Take 1 tablet (10 mg total) by mouth 1 (one) time each day 90 tablet 3 02/02/2021 Active Additional Information Patient not taking.Reported on 02/21/2023 alendronate (FOSAMAX) 70 MG tablet Take 1 tablet (70 mg total) by mouth 1 (one) time per week 0 12/07/2022 Active TURMERIC PO Take 1,100 mg by mouth 1 (one) time each day 0 Active CALCIUM PO Take 400 mg by mouth daily 0 Active BIOTIN PO Take 6,000 mcg by mouth 1 (one) time each day 0 Active Active Problems Problem Noted Date Diagnosed Date 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 No flaking, itching, erythema. Exam is normal, perhaps some thinning over the central vertex. She does have a varied diet, takes a daily multivitamin, no medications that would cause alopecia. Recommend laboratory evaluation including TSH, CBC, ferritin, B12. Fasting glucose was obtained last year and was normal. If all labs are normal she may consider topical minoxidil 5% foam daily, and she may obtain this [id number]. If desiring further evaluation could consider dermatology referral. This was discussed, will get back to her with labs when available. Primary osteoarthritis of hand 07/17/2017 Age-related osteoporosis wit hout current pathological fracture 11/09/2015 Last Assessment & Plan: DEXA scan 2016 shows T score -2.6 of the lumbar spine, -2.1 of the hips. Diagnosed with osteoporosis. She took alendronate 70 mg weekly for just 1 year, then stopped, under the impression that this was a 1 year only treatment. Discussed, educated, new prescription for alendronate 70 mg weekly was given. Recommend repeating DEXA scan next year after she has had to 4 years of treatment to ensure no worsening. She will continue adequate vitamin D supplementation. Hearing loss 05/17/2015 Encounters Date Type Department Care Team Description 03/09/2023 12:35 PM CDT - 03/09/2023 4:25 PM CDT Surgery [facility] Operating Room [address] [place] [address] Lalit Sorensen DPM HAMMERTOE REPAIR 2nd toe left foot 03/09/2023 12:35 PM CDT Anesthesia Event [facility] Operating Room [address] [place] [address] Berto Tirado MD Ahern, Timothy F., APRN, JOSEFINA 03/09/2023 10:41 AM CDT - 03/09/2023 3:54 PM CDT Hospital Encounter [facility] Operating Room [address] [place] [address] Lalit Sorensen, DPM Hav (hallux abducto valgus), left (Primary Dx) Discharge Disposition: Home or Self Care 03/09/2023 Travel 02/21/2023 9:00 AM CDT Procedure visit [facility] [address], [place] [address] Pre-op evaluation 02/21/2023 8:20 AM CDT Consult [facility] [address] [place] [id number] Santiago Baeza MD Pre-op evaluation (Primary Dx) 02/21/2023 8:00 AM CDT Clinical Support [facility] [address] [place] [address] from Last 3 Months Immunizations Name Administration Dates Next Due Hep A / Hep B 07/02/2001,02/06/2001,12/25/2000 Td 08/06/2003 Tdap 11/17/2013 Zoster 11/02/2015 Family History Medical History Relation Comments Diabetes Brother 1 Diabetes Mother Hypertension Mother Relation Status Comments Brother 1 Alive Brother 2 Alive Brother 3 Alive Daughter Alive Father Alive Mother Alive Sister 1 Alive Sister 2 Alive Sister 3 Alive Sister 4 Alive Son Alive Social History Tobacco Use Types Packs/Day Years [...] and Family Once a week 11/14/2018 Attends Scientologist Services Never 11/14 Active Member of Clubs [...] Date Recorded PHQ-9 Total Score 0 10/22/2020 [facility] - Occupational Stress [...] 14.9 oz) 023 10:53 AM CDT Height 170 cm (5' 6.93) 02/21/2023 8:09 AM CDT Body Mass Index 23.22 02/21/2023 8:09 AM CDT Plan of Treatment Health Maintenance Due Date Last Done Comments CT Colonography 1955 FIT-DNA 1955 Sigmoidoscopy 1955 iFOBT 1955 COVID-19 Vaccine (#1) 09/07/1960 Pneumococcal Vaccine: 65+ Years (1 of 2 - PCV) 09/07/1961 Fall Risk Performed 09/07/1973 Medicare Annual Wellness Visit (AWV) 09/07/1973 Zoster Vaccines (1 of 2) 12/28/2015 11/02/2015 Mammogram 04/19/2019 04/19/2018, 11/03/2015, 11/03/2015 Colonoscopy 09/30/2020 09/30/2010, 09/30/2010 Colorectal Cancer Screening 09/30/2020 Bone Density Scan 11/02/2020 11/03/2015 Influenza Vaccine (#1) 2023 DTaP,Tdap,and Td Vaccines (2 - Td or Tdap) 11/18/2023 11/17/2013, 08/06/2003 Pap Smear Discontinued 11/02/2015 HPV Vaccines Aged Out No longer eligi ble based on patient's age to complete this topic Medical Devices Implanted Type Area Robotype Operator Device Identifier Shelf Expiration Date Model / Serial / Lot Implant Medium Cannulated Phalinx Hammertoe - [id number] Implanted:Qty: 1 on 03/09/2023 by Lalit Sorensen DPM at [facility] Left: Foot [id number] / / NA Procedures Procedure Name Priority Date/Time Associated Diagnosis [...] foot Special Needs *Times given 03/08 SE* *oJe Garcia notified 02/26 SE* BILL toe implants , naheed repair kit HAMMERTOE REPAIR 03/09/2023 12:3 6 PM CDT Hammertoe of second toe of left foot Bunion of left foot Special Needs *Times given 03/08 SE* *Joe Garcia notified 02/26 SE* BILL toe implants , naheed repair kit ECG 12-LEAD Routine 02/21/2023 Pre-op evaluation from Last 3 Months Results * C-arm Fluoroscopy up to 1 [...] of fluoroscopy time was used. Lalit Sorensen DPM IMG FLUOROSCOPY [place] OCEDURES * ECG 12 lead (02/21/2023) Santiago Baeza MD ECG ORDERABLES [facility] from Last 3 Months Advance Directives For more information, please contact: [phone] Latest Code Status on File Code Status Date Activated Date Inactivated Comments Full Code 03/09/2023 2:55 PM 03/09/2023 5:54 PM Care Teams Sanitarian Inspector Relationship Specialty Start Date End Date Arden Solis MD [address] [facility] [address] [place] [address] PCP - General 08/23/21
--- OUTSIDE RECORDS SUMMARY | 2023-05-22 08:39 | XMS_ITS | Encounter Summary ---
Author Name Unknown Organization [facility] er Address [address] [place] [address] Care Team Providers Care Trumpet Teacher Name Role Phone Arden Solis MD Primary Care Provider [phone] Encounter Details Date Type Department Care Team (Late st Contact Info) Description 02/21/2023 8:00 AM CDT Clinical Support [facility] [address] [place], [place] [phone] Social History Tobacco Use Types Packs/Day Years [...] and Family Once a week 11/14/2018 Attends Episcopalian Services Never 11/14 Active Member of Clubs [...] Date Recorded PHQ-9 Total Score 0 10/22/2020 [facility] Occupat ional Health - Occupational Stress [...] on file documented as of this encounter OR Notes * Perioperative Nursing Note - Jimena Ramírez RN - 02/21/2023 8:00 AM CDT Pertinent Medical History: Diabetic: no If yes: Insulin Dependent: No Oral Agents: No Metabolic: no Hematologic: no Cardiac: no Pulmonary: no CPAP: no Inhaler: no Anesthesia/Transfusion: Prior Anesthesia Reaction: No Pertinent Family History: no Social History: Alcohol: Yes, describe: 4/week Tobacco: No Substance use: No : No Test Indicated: No FYI Notes: documented in this encounter Miscellaneous Notes * Preprocedure Instructions - Jimena Ramírez RN - 02/21/2023 8:00 AM CDT Patient has had anesthesia in the past, has history of ponv, no known family history of anesthesia issues. Verified surgery is with Dr. Sorensen on left foot. 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 Patient denied cardiac and respiratory issues and is not a smoker. Reminded to follow primary care provider instructions on which medications to take on day of surgery. Information and instructions for surgery given including NPO guidelines. Covid 19 initial screening completed. Questions answered, encouraged to call PreOp nursing with any further questions or concerns. documented in this encounter Plan of Treatment Not on file documented as of this encounter Visit Diagnoses Not on filedocumented in this encounter Care Teams Trumpet Teacher Relationship Specialty Start Date End Date Arden Solis MD [address] [place] [address] PCP - General 08/23/21 documented as of this encounter
--- OUTSIDE RECORDS SUMMARY | 2023-05-22 08:39 | XMS_ITS | Referral Summary ---
Author Name Unknown Organization [facility] Address [address] [place] [address] Care Team Providers Care Medical Laboratory Technician Name Role Phone Unavailable Primary Care Provider Unavailabl e Source Comments Patient records contain information from all sites at [facility]. For routine questions regarding patient records, call [phone] during business hours, M-F 8:00 AM - 5:00 PM Central Time. Record requests for emergency care only can be directed to [phone] at any time.[facility] Encounters Date Type Department Care Team Description 04/16/2023 9:05 AM OCCUPATIONAL HEALTH PHYSICIAN Ancillary Procedure Department of Otorhinolaryngology 04/16/2023 8:30 AM OCCUPATIONAL HEALTH PHYSICIAN Comprehensive Visit Department of Otorhinolaryngology in [address] [phone] Manjeet Mobley M.D. Atypical Facial Pain (Primary Dx); Drip Post Nasal; Cerumen Impacted Right Discharge Disposition: Home or Self Care 04/12/2023 10:30 AM OCCUPATIONAL HEALTH PHYSICIAN Office Visit Department of Ophthalmology in [place], [place] [address] [place] [address] Kevin Ceja M.D. 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 Tear Horseshoe Without Retinal Detachment Left (Primary Dx) 03/02/2023 3:30 PM CDT Comprehensive Visit Department of Ophthalmology in [place], [place] [address] [place] [address] Kevin Ceja M.D. 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; Tear Horseshoe Without Retinal Detachment Left; Scar Chorioretinal Left 03/02/2023 Clinical Communication Department of Ophthalmology in [place], [place] [address] [place] [phone] Prescheduling , Provider Triage (uec) from Last 3 Months Allergies No known active allergies Medications Medication [...] bicarbonate (Neilmed Sinus Rinse Complete) nasal rinseIndications:Dr anne Post Nasal Administer 1 Application into each [...] 04/23/2023 Active Problems No known active problems Social History Tobacco Use Types Packs/Day Years [...] (Latest Contact Info) Description 06/18/2023 9:00 AM OCCUPATIONAL HEALTH PHYSICIAN Office Visit Department of Otorhinolaryngology in [address] [phone] Manjeet Mobley M.D. [address] [place] [phone] Discharge Disposition: Home or Self Care Procedures Procedure Name Priority Date/Time Associated Diagnosis Comments OTORHINOLARYNGOLOGY IMAGE EXAM Routine 04/16/2023 9:05 AM OCCUPATIONAL HEALTH PHYSICIAN PROPHYLAXIS OF RETINAL DETACHMENT, LASER - OS - LEFT EYE Routine 03/02/2023 5:22 PM CDT Tear Horseshoe Without Retinal Detachment Left OPHTHALMOLOGY IMAGE EXAM Routine 023 12:00 AM CDT from Last 3 Months Results * Otorhinolaryngology Image Exam-Otorhinolaryngology Image Exam (04/16/2023 9:05 AM OCCUPATIONAL HEALTH PHYSICIAN) 04/16/2023 9:04 AM OCCUPATIONAL HEALTH PHYSICIAN Narrative IIMS - 04/16/2023 9:41 AM OCCUPATIONAL HEALTH PHYSICIAN This order has been created and auto-finalized to support the import of images acquired without order. The clinical documentation to support these images can be found on the encounter that produced images. Provider Not In System IMG NON RAD IMAGI NG PROCEDURES Performing Organization Address [facility] Co de Phone Number IIAL NA * Prophylaxis of Retinal Detachment, Laser - OS - Left Eye (03/02/2023 5:22 PM CDT) Narrative OPHTHALMOLGY NON-IMAGING ORDERS - 03/02/2023 5:22 PM [...] OPHTH CLINIC PROCED URES Performing Organization Address [facility] Co de Phone Number OPHTHALMOLGY NON-IMAGING ORDERS [...] NON RAD IMAGI NG PROCEDURES IIMS NA from Last 3 Months
--- OUTSIDE RECORDS SUMMARY | 2023-05-22 08:39 | XMS_ITS | Encounter Summary ---
Author Name Unknown Organization [facility] er Address [address] [place] [address] Care Team Providers Care Summer Counselor Name Role Phone Arden Solis MD Primary Care Provider [phone] Reason for Visit * Auth/Cert (Routine) Specialty [...] Expiration Date Visits Re quested Visits Authorized [id number] 1 Encounter Details Date Type Department Care Team (Late st Contact Info) Description 03/09/2023 12:35 PM CDT Anesthesia Event [facility] Operating Room [address] [place] [address] Berto Tirado MD [address] [place] [phone] Marcel Garrison APRN, LAUNDRY SUPERVISOR [address] [place] [phone] Anesthesia Record Procedure Summary Procedure Name Responsible Anesthesiologist Anesthesia Start Time Anesthesia Stop Time HAMMERTOE REPAIR 2nd toe left foot (Left) Berto Tirado MD 03/09/23 1235 03/09/23 1453 Events Date Time Event Comment 03/09/2023 1145 1235 An Start 1235 An Start Data 1236 In Room 1243 Anesthesia Ready 1307 Travis Ankle block per surgeon. 1310 An Tourn Inflated 1312 Proc Start 1440 An Tourn Deflated 1444 Proc Fin 1448 an stop data 1449 Out of Room 1453 Handoff to RN I completed my handoff to the receiving nurse during which we: 1. Identified the patient 2. Identified the responsible provider 3. Reviewed the pertinent medical history 4. Discussed the surgical course 5. Reviewed intra-op anesthesia management and issues during anesthesia 6. Set expectations for post-procedure period 7. Allowed opportunity for questions and acknowledgement of understanding. 1453 An Stop Meds Name Total fentaNYL 50 mcg/mL 100 mcg midazolam 2 MG/2ML 1 mg propofol 10 mg/mL 428.92 mg lidocaine PF 2 % 60 mg dexamethasone 4 MG/ML 4 mg ondansetron 4 MG/2ML 4 mg Ketamine HCl 50 MG/5ML 20 mg cefazolin (ANCEF) IVPB 2 g in 100 mL - p remix 2 g lactated Ringer's infusion 1,300 mL * Agents No agents on file. * Blood No blood administrations on file. Lines, Drains, and Airways Type Details Placement Removal Incision/Surgical Site 03/09/23; N; Inci ok; Foot; Anterior, Left; Adaptic with betadine solution, 4x4s, sari, 1in paper tape 03/09/23 0000 by Lidya Greene Peripheral IV Placement Date: 07/27; Placement Time: 1105; Catheter Size: 20 G; Orientation: Left, Posterior; Location: Hand; Site Prep: Chlorhexidine ; Local Anesth: None; Technique: Anatomical landmarks; Insertion Attempts: 1; Patient Tolerance: Tolerated well; Removal Date: 03/09/23; Removal Time: 1547; Removal Reason: Per protocol 03/09/23 1105 by Anna Dang RN 03/09/23 1547 by Anna Dang, TYRA documented in this encounter Social History Tobacco [...] and Family Once a week 11/14/2018 Attends Congregation Services Never 11/14 Active Member of Clubs [...] Date Recorded PHQ-9 Total Score 0 10/22/2020 [facility] Occupat ional Health - Occupational [...] as of this encounter OR Notes * Anesthesia Postprocedure Evaluation - Berto Tirado MD - 03/09/2023 3:19 PM CDT Patient: Dipika Alexis Procedure Summary Date: 03/09/23 Room / Location: [facility] OR [address] [place] [address] Operating Room Anesthesia Start: 1235 Anesthesia Stop: 1453 Procedures: HAMMERTOE REPAIR 2nd toe left foot (Left) OSTEOTOMY METATARSAL 2nd left foot (Left) BUNIONECTOMY SILVER left foot (Left) Diagnosis: Hammertoe of second toe of left foot Bunion of left foot (Hammertoe of second toe of left foot [M20.42]) (Bunion of left foot [M21.612]) Surgeons: Lalit Sorensen DPM Responsible Provider: Berto Tirado MD Anesthesia Type: MAC ASA Status: 2 Anesthesia Type: MAC Last vitals Vitals Value Taken Time BP 136/76 03/09/23 1515 Temp 36.6 ??C (97.9 ??F) 03/09/23 1455 Pulse 58 03/09/23 1519 Resp 16 03/09/23 1455 SpO2 98 % 03/09/23 1519 Vitals shown include unvalidated device data. There were no known notable events for this encounter. Anesthesia Post Evaluation Patient location during evaluation: bedside (OPS) Patient participation: complete - patient participated Level of consciousness: awake Pain management: adequate Airway patency: patent Cardiovascular status: acceptable Respiratory status: acceptable and nonlabored ventilation Hydration status: acceptable Comments: Visited in OPS1. No complaints, states she is doing well. Nausea and vomiting control satisfactory * Anesthesia Preprocedure Evaluation - Berto Tirado MD - 03/08/2023 4:35 PM CDT Anesthesia Adult ROS/MED Evaluation PONV, otherwise patient denies history of problems with anesthesia. Patient denies family history of genetic problems with anesthesia. Albuterol on med list, patient suggests we remove it as she has no issues with her breathing Arthritis Osteoporosis Clinical information reviewed: Visit Vitals BP 148/64 (BP Location: Right arm, Patient Position: Sitting) Pulse 64 Temp 36.3 ??C (97.3 ??F) (Temporal) Resp 16 Wt 67.1 kg (147 lb 14.9 oz) SpO2 98% BMI 23.22 kg/m?? Smoking Status Never BSA 1.78 m?? Physical Exam Airway Mallampati: II TM distance: >3 FB Neck ROM: full Cardiovascular Rhythm: regular Rate: normal Dental Pulmonary Breath sounds clear to auscultation Abdominal Comments: Not examined Anesthesia Plan ASA 2 MAC (Possible conversion to general anesthetic Risks discussed include, not limited to: Postoperative nausea and vomiting Trouble with heart or lungs, stroke, TIA We reviewed the anesthetic consent form together. We also discussed anesthetic risks and all questions were answered. The patient then signed the electronic consent. ) intravenous induction Anesthetic plan and risks discussed with patient. Plan discussed with LAUNDRY SUPERVISOR. Initial evaluation reviewed, no significant interval change. Re-evaluation prior to induction complete. documented in this encounter Plan of Treatment Not on file documented as of this encounter Visit Diagnoses Not on filedocumented in this encounter Administered Medications Inactive Administered Medications - up to 3 most recent administrations Medication Order MAR Action Action Date Dose Rate Site cefazolin (ANCEF) IVPB 2 g in 100 mL - premix 2 g, Intravenous, Administer over 30 Minutes, Once, On Sun03/09/23 at 1330, For 1 dose, Preprocedure, Administer within 60 minutes of incision., Indication: Surgical Site Given 03/09/2023 12:47 PM CDT 2 g dexamethasone (DECADRON) injection Intravenous, As needed, Starting on Sun03/09/23 at 1241, Anesthesia Intraprocedure Given 03/09/2023 12:41 PM CDT 4 mg fentaNYL (SUBLIMAZE) injection Intravenous, As needed, Starting on Sun03/09/23 at 1239, Anesthesia Intraprocedure Given 03/09/2023 1:04 PM CDT 25 mcg Given 03/09/2023 1:00 PM CDT 25 mcg Given 03/09/2023 12:39 PM CDT 50 mcg Ketamine HCl (KETALAR) injection Intravenous, As needed, Starting on Sun03/09/23 at 1247, Anesthesia Intraprocedure Given 03/09/2023 12:47 PM CDT 20 mg lactated Ringer's infusion 75 mL/hr, Intravenous, Continuous, Starting on Sun03/09/23 at 1130, For 5 days New Bag 03/09/2023 2:07 PM CDT Continued from Pre 03/09/2023 12:35 PM CDT 75 m L/hr New Bag 03/09/2023 11:10 AM CDT 75 mL/hr 75 mL/hr lidocaine PF (XYLOCAINE) 2 % injection Infiltration, As needed, Starting on Sun03/09/23 at 1241, Anesthesia Intraprocedure Given 03/09/2023 12:41 PM CDT 60 mg midazolam (VERSED) injection Intravenous, As needed, Starting on Sun03/09/23 at 1239, Anesthesia Intraprocedure Given 03/09/2023 12:39 PM CDT 1 mg ondansetron (ZOFRAN) injection Intravenous, As needed, Starting on Sun03/09/23 at 1241, Anesthesia Intraprocedure Given 03/09/2023 12:41 PM CDT 4 mg propofol (DIPRIVAN) infusion 10 mg/mL Intravenous, As needed, Starting on Sun03/09/23 at 1240, Anesthesia Intraprocedure Given 03/09/2023 1:07 PM CDT 2 0 mg Given 03/09/2023 1:06 PM CDT 20 mg Given 03/09/2023 1:05 PM CDT 20 mg documented in this encounter Care Teams Summer Counselor Relationship Specialty Start Date End Date Arden Solis MD [address] [phone] PCP - General 08/23/21 documented as of this encounter
--- OUTSIDE RECORDS SUMMARY | 2023-05-22 08:40 | XMS_ITS | Encounter Summary ---
Author Name Unknown Organization [facility] Address [address] [place] [address] Care Team Providers Care Log Pond Worker Name Role Phone Unavailable Primary Care Provider Unavailabl e Reason for Visit * Reason Onset Date Comments Triage 03/02/2023 uec Encounter Details Date Type Department Care Team (Late st Contact Info) Description 03/02/2023 Clinical Communication Department of Ophthalmology in [place], [place] [address] [place] [address] Prescheduling, Provider Triage (uec) Social History Tobacco Use Types Packs/Day Years Used Date Smoking Tobacco: Never Assessed Nutrition Answer Date Recorded Nutrition: EVOO Fat Source Unknown 08/01 Nutrition: Servings of Fruits/Vegetables per Day Not on file 08/01/2021 Dental Answer Date Recorded Dental: Regular Dentist Unknown 08/02/19 Sex and Gender Information Value Date Recorded Sex Assigned at Not on file Gender Identity Not on file Sexual Orientation Not on file documented as of this encounter Plan of Treatment Upcoming Encounters Date Type Department Care Team (Latest Contact Info) Description 06/18/2023 9:00 AM TALENT DEVELOPMENT CONSULTANT Office Visit Department of Otorhinolaryngology in [place], [place] [address] [place] [phone] Manjeet Mobley M.D. [address] [place] [phone] Discharge Disposition: Home or Self Care documented as of this encounter Visit Diagnoses Not on filedocumented in this encounter
--- OUTSIDE RECORDS SUMMARY | 2023-05-22 08:40 | XMS_ITS ---
Author Name Unknown Organization [facility] Address [address] [place] [address] Care Team Providers Care Bank Appraiser Name Role Phone Unavailable Unavailable Unavailable Surgery Details Not on file Complications Check Surgery Details section. Procedure Estimated Blood Loss Check Surgery Details section. Procedure Findings Check Surgery Details section. Procedure Specimens Taken Check Surgery Details section.
--- OUTSIDE RECORDS SUMMARY | 2023-05-22 08:40 | XMS_ITS | Encounter Summary ---
Author Name Unknown Organization [facility] Address [address] [place] [address] Care Team Providers Care Flatwork Washer Name Role Phone Unavailable Primary Care Provider Unavailabl e Reason for Referral * Outpatient (Routine) - Closed Specialty Diagnoses / Procedures Referred By Neetu t Referred To Contact Procedures Prophylaxis of Retinal Detachment, Laser - OS - Left Eye Kevin Ceja M.D. [address] [place] [phone] [facility] Referral ID Status Reason Start Date Expiration Date Visits Re quested Visits Authorized [id number] Closed 03/02/2023 03/01/2024 1 1 * Outpatient (Routine) - Closed Specialty Diagnoses / Procedures Referred By Neetu breen Referred To Contact Ophthalmology Kevin Ceja M.D. [address] [place] [phone] [facility] Referral ID Status Reason Start Date Expiration Date Visits Re quested Visits Authorized [id number] Closed 03/02/2023 03/01/2026 1 1 Scheduling Instructions VTD L eye only Reason for Visit * Outpatient (Routine) - Closed Specialty Diagnoses / Procedures Referred By Contcabrera t Referred To Contact Procedures Prophylaxis of Retinal Detachment, Laser - OS - Left Eye Kevin Ceja M.D. [address] [place] [phone] [facility] Referral ID Status Reason Start Date Expiration Date Visits Re quested Visits Authorized [id number] Closed 03/02/2023 03/01/2024 1 1 Encounter Details Date Type Department Care Team (Latest Contact Info) Description 03/02/2023 3:30 PM CDT Comprehensive Visit Department of Ophthalmology in [place], [place] [address] [place] [phone] Kevin Ceja M.D. 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 - 03/02/2023 3:30 PM CDT Dipika Alexis is a 67 y.o. female seen in clinic today for possible retinal tear, L eye. The patient was seen for routine eye exam earlier today by an outside hydrochloric area supervisor and was noted to have a possible superotemporal horseshoe tear on routine exam. Patient reports she has been asymptomatic from this. Specifically, she denies persistent flashing lights, shower of floaters, or loss of peripheral vision. Retinal detachment risk factors: Trauma: N Previous intraocular surgery/procedures: N High myopia: N Personal history of tear/detachment: N Family history of tear/detachment: N POH: None Current drops: None ASSESSMENT/PLAN # Retinal tear, L eye # Chorioretinal scar, L eye Discussed findings with the patient. She has a small HST adjacent to a chorioretinal scar superotemporally that would warrant laser barricade. R/B/A to laser retinopexy discussed and the patient would like to proceed. See procedure note for details. The patient tolerated the procedure well without complication. Recommend laser recheck in 2 weeks. Retinal detachment return precautions discussed. Business card provided with appropriate contact numbers. # Age related cataracts, both eyes Mild, not visually significant. Observe for now # Non-exudative age-related macular degeneration, R eye Discussed with the patient. Small, non-confluent drusen noted on exam. Recommend annual dilated eyeexam for ongoing monitoring. The patient was understanding and in agreement with this plan. All questions were answered to the best of my ability. This patient was seen with Dr. Reynaga and Dr. Castro. Kevin Ceja M.D. Pager: [phone] Associated attestation - Zabrina Castro M.D., Ph.D. - 03/02/2023 9:35 PM CDT Images from the original note were not included. I have reviewed the history, findings, diagnosis, and management plan as described above, in accordance with my role as attending semiconductor testing group leader. I have also personally examined this patient. I am in agreement with diagnosis and management plan outlined above by Dr. Ceja. Zabrina Castro MD, PhD Profile Saw Setup Operator Steam Tender Vitreoretinal Surgery & Diseases [facility], Department of Ophthalmology [address] [place] [phone] documented in this encounter Plan of Treatment Upcoming Encounters Date Type Department Care Team (Latest Contact Info) Description 06/18/2023 9:00 AM JUNIOR MARKETING ASSOCIATE Office Visit Department of Otorhinolaryngology in [address] [phone] Manjeet Mobley M.D. [address] [place] [phone] Discharge Disposition: Home or Self Care Scheduled Referrals Name Type Priority Associated Diagnoses Order Schedule Ophthalmology office visit (clinic) Outpatient Referral Routine Expected: 03/16/2023 (Approximate), Expires: 06/02/2024 documented as of this encounter Procedures Procedure Name Priority Date/Time Associated Diagnosis Comments PROPHYLAXIS OF RETINAL DETACHMENT, LASER - OS - LEFT EYE Routine 03/02/2023 5:22 PM CDT Tear Horseshoe Without Retinal Detachment Left documented in this encounter Results * Prophylaxis of Retinal Detachment, Laser - [...] Kevin Ceja M.D. OPHTH CLINIC PROCED URES OPHTHALMOLGY NON-IMAGING ORDERS documented in this encounter Visit Diagnoses Diagnosis Age Related Nuclear Cataract Bilateral- Primary Nonexudative Age-Related Macular Degeneration Early Dry Stage Right Tear Horseshoe Without Retinal Detachment Left Scar Chorioretinal Left documented in this encounter
--- OUTSIDE RECORDS SUMMARY | 2023-05-22 08:40 | XMS_ITS | Encounter Summary ---
Author Name Unknown Organization [facility] Address [address] [place] [address] Care Team Providers Care Route Sales Person Name Role Phone Unavailable Primary Care Provider Unavailabl e Reason for Referral * Outpatient (Routine) - Closed Specialty Diagnoses / Procedures Referred By Neetu breen Referred To Contact Ophthalmology Kevin Ceja M.D. [address] [place] [phone] [facility] Referral ID Status Reason Start Date Expiration Date Visits Re quested Visits Authorized [id number] Closed 03/16/2023 03/15/2026 1 1 Scheduling Instructions VTD L eye only RATIONS SUPERVISOR Reason for Visit * Reason Comments follow up left eye * Outpatient (Routine) - Closed Specialty Diagnoses / Procedures Referred By Neetu breen Referred To Contact Ophthalmology Kevin Ceja M.D. [address] [place] [phone] [facility] Referral ID Status Reason Start Date Expiration Date Visits Re quested Visits Authorized [id number] Closed 03/02/2023 03/01/2026 1 1 Encounter Details Date Type Department Care Team (Latest Contact Info) Description 03/16/2023 8:00 AM ALTERATIONS SUPERVISOR Office Visit Department of Ophthalmology in [place], [place] [address] [place] [phone] Kevin Ceja M.D. [address] [place] [phone] Age Related Nuclear Cataract Bilateral (Primary Dx); [...] as of this encounter Progress Notes * Kevin Ceja M.D. - 03/16/2023 8:00 AM CST Dipika Alexis is a 67 y.o. female seen in clinic today for laser followup, L eye. The patient was seen for routine eye exam on 03/02 and was found to have a retinal tear from which she was asymptomatic. She underwent laser retinopexy same day and returns for a laser recheck. Since last visit, she denies persistent flashing lights, shower of floaters, or loss of peripheral vision. Otherwise has no concerns. Retinal detachment risk factors: Trauma: N Previous intraocular surgery/procedures: N High myopia: N Personal history of tear/detachment: N Family history of tear/detachment: N POH: None Current drops: None ASSESSMENT/PLAN # Retinal tear, L eye # Chorioretinal scar, L eye Small superotemporal HST adjacent to a chorioretinal scar well surrounded by laser barricade. Recommend final recheck in 1 month, sooner if new issues arise. Retinal detachment return precautions discussed. Business card [...] best of my ability. This patient was Kevin Ceja M.D. Pager: [phone] RATIONS SUPERVISOR documented in this encounter Plan of Treatment Upcoming Encounters Date Type Department Care Team (Latest Contact Info) Description 06/18/2023 9:00 AM ALTERATIONS SUPERVISOR Office Visit Department of Otorhinolaryngology in [address] [phone] Manjeet Mobley M.D. 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
--- OUTSIDE RECORDS SUMMARY | 2023-05-22 08:40 | XMS_ITS | Encounter Summary ---
Author Name Unknown Organization [facility] Address [address] [place] [address] Care Team Providers Care Media Services Director Name Role Phone Unavailable Primary Care Provider Unavailabl e Encounter Details Date Type Department Care Team ( Contact Info) Description 03/02/2023 Ancillary Procedure Department of Ophthalmology Social History Tobacco Use Types Packs/Day Years [...] (Latest Contact Info) Description 06/18/2023 9:00 AM POTATO CHIP SORTER Office Visit Department of Otorhinolaryngology in [place], [place] [address] [place] [phone] Manjeet Mobley M.D. [address] [place] [phone] Discharge Disposition: Home or Self Care documented as of this encounter Procedures Procedure Name Priority Date/Time Associated Diagnosis Comments OPHTHALMOLOGY IMAGE EXAM Routine 03/02/2023 12:00 AM CDT documented in this encounter Results * Unspecified-Ophthalmology Image Exam (03/02/2023 12:00 AM CDT) Narrative [facility]IM[facility] - 03/02/2023 3:27 PM CDT This order has been created and auto-finalized to support the import of images acquired without order. The clinical documentation to support these images can be found on the encounter that produced images. Provider Not In System IMG NON RAD IMAGI NG PROCEDURES [facility] NA documented in this encounter Visit Diagnoses Not on filedocumented in this encounter
--- OUTSIDE RECORDS SUMMARY | 2023-05-22 08:40 | XMS_ITS | Encounter Summary ---
Author Name Unknown Organization [facility] Address [address] [place] [address] Care Team Providers Care Pulp And Paper Tester Name Role Phone Unavailable Primary Care Provider Unavailabl e Encounter Details Date Type Department Care Team (Latest Contact Info) Description 04/16/2023 9:05 AM TRANSFORMER MAKER Ancillary Procedure Department of Otorhinolaryngology Social History Tobacco Use Types Packs/Day Years Used Date Smoking Tobacco: Never Smokeless Tobacco: Never Alcohol Use Standard Drinks/Week Comments Yes 1 [...] (Latest Contact Info) Description 06/18/2023 9:00 AM TRANSFORMER MAKER Office Visit Department of Otorhinolaryngology in [address] [phone] Manjeet Mobley M.D. [address] [place] [phone] Discharge Disposition: Home or Self Care documented as of this encounter Procedures Procedure Name Priority Date/Time Associated Diagnosis Comments OTORHINOLARYNGOLOGY IMAGE EXAM Routine 04/16/2023 9:05 AM TRANSFORMER MAKER documented in this encounter Results * Otorhinolaryngology Image Exam-Otorhinolaryngology Image Exam (04/16/2023 9:05 AM TRANSFORMER MAKER) 04/16/2023 9:04 AM TRANSFORMER MAKER Narrative IIM[facility] - 04/16/2023 9:41 AM TRANSFORMER MAKER This order has been created and auto-finalized to support the import of images acquired without order. The clinical documentation to support these images can be found on the encounter that produced images. Provider Not In System IMG NON RAD IMAGI NG PROCEDURES [facility]IM[facility] NA documented in this encounter Visit Diagnoses Not on filedocumented in this encounter
--- OUTSIDE RECORDS SUMMARY | 2023-05-22 08:40 | XMS_ITS | Encounter Summary ---
Author Name Unknown Organization [facility] Address [address] [place] [address] Care Team Providers Care Director Of Materials Name Role Phone Unavailable Primary Care Provider Unavailabl e Reason for Referral * Outpatient (Routine) - Authorized Specialty Diagnoses / Procedures Referred By Neetu t Referred To Contact Ophthalmology Diagnoses Tear Horseshoe Without Retinal Detachment Left Marilee Thomas O.D. [address], [place] [address] [facility] Referral ID Status Reason Start Date Expiration Date V isits Requested Visits Authorized [id number] Authorized 03/02/2023 03/01/2024 1 1 Encounter Details Date Type Department Care Team (Late st Contact Info) Description 03/02/2023 Community Orders [facility] [address] [place] [phone] Marilee Thomas O.D. [address], [place] [address] Tear Horseshoe Without Retinal Detachment Left (Primary Dx) Social History Tobacco Use Types Packs/Day Years Used Date Smoking Tobacco: Never Assessed Nutrition Answer Date Recorded Nutrition: EVOO Fat Source Unknown 08/01 Nutrition: Servings of Fruits/Vegetables per Day Not on file 08/01/2021 Dental Answer Date Recorded Dental: Regular Dentist Unknown 03/28/20 22 Sex and Gender Information Value Date Recorded Sex Assigned at Not on file Gender Identity Not on file Sexual Orientation Not on file documented as of this encounter Plan of Treatment Upcoming Encounters Date Type Department Care Team (Latest Contact Info) Description 06/18/2023 9:00 AM SOUR BLEACHING PLEATER Office Visit Department of Otorhinolaryngology in [address] [phone] Manjeet Mobley M.D. [address] [place] [phone] Discharge Disposition: Home or Self Care Scheduled Referrals Name Type Priority Associated Diagnoses Order Schedule Ophthalmology Referral Outpatient Referral Routine Tear Horseshoe Without Retinal Detachment Left Expected: 03/02/2023 (Approximate), Expires: 06/02/2024 documented as of this encounter Visit Diagnoses Diagnosis Tear Horseshoe Without Retinal Detachment Left- Primary documented in this encounter
--- OUTSIDE RECORDS SUMMARY | 2023-05-22 08:40 | XMS_ITS | Encounter Summary ---
Author Name Unknown Organization [facility] Address [address] [place] [address] Care Team Providers Care Manager Information Name Role Phone Unavailable Primary Care Provider Unavailabl e Reason for Referral * Outpatient (Routine) - Authorized Specialty Diagnoses / Procedures [facility] Referred To Contact Otorhinolaryngology Diagnoses Atypical Facial Pain Cerumen Impacted Right Drip Post Nasal Manjeet Mobley M.D. [address] [place] [phone] [facility] Region Referral ID Status Reason Start Date Expiration Date V isits Requested Visits Authorized [id number] Authorized 04/16/2023 04/15/2026 1 1 NT ACQUISITION OPERATIONS MANAGER * Outpatient (Routine) - Authorized Specialty Diagnoses / Procedures Referred By [facility] Referred To Contact Otorhinolaryngology Diagnoses Atypical Facial Pain Cerumen Impacted Right Drip Post Nasal Manjeet Mobley M.D. [address] [place] [phone] [facility] Region Referral ID Status Reason Start Date Expiration Date V isits Requested Visits Authorized [id number] Authorized 04/16/2023 04/15/2026 1 1 NT ACQUISITION OPERATIONS MANAGER Reason for Visit * Reason Comments Sinusitis * Appointment Request (Routine) - Closed Specialty Diagnoses / Procedures Referred By Contac t Referred To Contact Otorhinolaryngology Referral ID Status Reason Start Date Expiration Date Visits Re quested Visits Authorized [id number] Closed 01/30/2023 01/30/2024 1 1 Encounter Details Date Type Department Care Team (Latest Contact Info) Description 04/16/2023 8:30 AM TALENT ACQUISITION OPERATIONS MANAGER Comprehensive Visit Department of Otorhinolaryngology in [address] [phone] Manjeet Mobley M.D. [address] [place] [phone] Atypical Facial Pain (Primary Dx); Drip Post Nasal; Cerumen Impacted Right Discharge Disposition: Home or Self Care Social [...] Date Recorded Dental: Regular Dentist Unknown 08/02/19 22 Sex and Gender Information Value Date Recorded Sex Assigned at Not on file Gender Identity Not on file Sexual Orientation Not on file documented as of this encounter Patient Instructions * Patient Instructions* Manjeet Mobley M.D. - 04/16/2023 8:30 AM TALENT ACQUISITION OPERATIONS MANAGER #1 Atypical Facial Pain Suspect separate from postnasal drainage. No indication of sinus source. Possibly variation muscle tension headache or other headache phenomenon. Follow- up primary care if she wishes. No history of dental disease or dental pain or tooth problems that she is aware of. #2 Drip Post Nasal, subject Reassured regarding normal exam. CT report reviewed. Prior failure reported on fluticasone for 2 months alone. She is agreeable with trial fluticasone 2 sprays each nostril daily, in addition to saline irrigation twice daily. Will follow up on symptom progress at two-month recheck. If no improvement consider options including Atrovent nasal spray or [facility] triple nasal spray trial.No history of acid reflux or heartburn symptoms #3 Cerumen Impacted Right I was unable to safely debride far medial adherent firm cerumen. Visible posterior TM appears normal and mobile. Recommend cerumen drops daily for 7 days, weekly thereafter. Recheck two-month to ensure normal TM and cerumen resolution. NT ACQUISITION OPERATIONS MANAGER documented in this encounter Consult Notes * Manjeet Mobley M.D. - 04/16/2023 8:30 AM CST SUBJECTIVE REASON FOR CONSULT Ms. Alexis is a 67 y.o. female who presents for evaluation of Sinusitis. At request of: No ref. provider found HISTORY OF PRESENT ILLNESS Ms. Alexis is a very pleasant 67 y.o. female presents for 2 issues. Postnasal drainage: Reports 3 year history, reports mucus buildup in the back of her sinuses and postnasal drainage. Symptoms feel bilateral. She has been told there ???allergies?? in the past, has had no relief from Claritin D or a couple months trial of what sounds like fluticasone daily. She does not blow anything out of the front of her nose. She describes sniffing and occasionally gagging an d feeling like she can not swallow. Denies anterior rhinorrhea, epistaxis, nasal obstruction. Denies gastroesophageal reflux or heartburn. Denies sneezing or itchy watery eyes. ???Headaches?? : Also 3 year history. On further questioning she really describes facial pressure bilateral rather than head pain. She says it occurs more so towards the end of the day, she attributes it to her postnasal drainage. 2020October 25 was seen at [facility] by ENT nurse practitioner with diagnosis of nasal congestion and rhinitis medicamentosa, recommended Medrol Dosepak, fluticasone common CT scan. 2020October 30 CT for ???sinusitis, chronic or recurrent?? , report indicated ???normal study?? (images not available) Denies ear pain, drainage, hearing loss, tinnitus, vertigo The following portions of the patient's history were reviewed and updated as appropriate: allergies, current medications, family history, medical history, social history, surgical history and problem list. OBJECTIVE PHYSICAL EXAMINATION Vital Signs: There were no vitals filed for this visit. General appearance: NO ACUTE DISTRESS Voice: NORMAL Head/face inspection: NORMAL Facial palpation: NORMAL Facial strength: NORMAL Eyes-gross motility/align: NORMAL Hearing (grossly): NORMAL Ears External: NORMAL Otoscopic: LEFT CANAL - NORMAL LEFT TM - NORMAL RIGHT CANAL - moderate medial canal cerumen impaction precluding TM visualization. Under loupe illumination debrided with suction. Far medial firm adherent cerumen could not be debrided safely. RIGHT TM - NORMAL Posterior TM visible, translucent, normal mobility Nose: External: NORMAL Intranasal: NORMAL, midline septum, widely patent bilateral, healthy mucosa PROCEDURE: FLEXIBLE NASAL ENDOSCOPY (pediatric scope) Topical spray: Oxymetazoline Findings: INTRANASAL -no polyps, purulence, inflammation, edema. Healthy mucosa throughout. SEPTUM normal, small mid septal spur on the right LEFT normal RIGHT normal PHARYNX NASOPHARYNX normal OROPHARYNX normal HYPOPHARYNX normal LARYNX normal Oral cavity: NORMAL, normal tongue mobility Oropharynx: NORMAL Neck: NO MASSES. Cervical lymph nodes: NOT PALPABLY ENLARGED. Thyroid: NOT PALPABLY ENLARGED. Salivary glands: NOT PALPABLY ENLARGED. Respiratory: Quiet respirations without stridor Cardiovascular: Upper extremities appear well perfused without cyanosis. Neurologic: NORMAL grossly Cranial nerves: NORMAL grossly ASSESSMENT / PLAN #1 Atypical Facial Pain #2 Drip Post Nasal - sodium chloride-sodium bicarbonate (Neilmed Sinus Rinse Complete) nasal rinse; Administer 1 Application into each nostril 2 (two) times a day., Starting Sun04/16/2023, Normal - fluticasone propionate (FLONASE) 50 mcg/actuation nasal spray; Administer 2 sprays into each nostril daily., Starting Sun04/16/2023, NormalMay provide 3 month supply at a time if patient/insuranceprefer #3 Cerumen Impacted Right - carbamide peroxide (DEBROX) 6.5 % otic solution; Administer 5 drops into the right ear 2 (two) times a day for 7 days. Then once weekly until ENT follow-up, Starting Sun04/16/2023, Until Sun04/23/2023, [facility] Other orders - Otorhinolaryngology office visit (clinic); Future; Expected date: 06/17/2023 - Otorhinolaryngology office visit (clinic); Future; Expected date: 06/17/2023 #1 Atypical Facial Pain Suspect separate from postnasal drainage. No indication of sinus source. Possibly variation muscle tension headache or other headache phenomenon. Follow- up primary care if she wishes. No history of dental disease or dental pain or tooth problems that she is aware of. #2 Drip Post Nasal, subject Reassured regarding normal exam. CT report reviewed. Prior failure reported on fluticasone for 2 months alone. She is agreeable with trial fluticasone 2 sprays each nostril daily, in addition to saline irrigation twice daily. Will follow up on symptom progress at two-month recheck. If no improvement consider options including Atrovent nasal spray or [facility] triple nasal spray trial.No history of acid reflux or heartburn symptoms #3 Cerumen Impacted Right I was unable to safely debride far medial adherent firm cerumen. Visible posterior TM appears normal and mobile. Recommend cerumen drops daily for 7 days, weekly thereafter. Recheck two-month to ensure normal TM and cerumen resolution. NT ACQUISITION OPERATIONS MANAGER documented in this encounter Plan of Treatment Upcoming Encounters Date Type Department Care Team (Latest Contact Info) Description 06/18/2023 9:00 AM TALENT ACQUISITION OPERATIONS MANAGER Office Visit Department of Otorhinolaryngology in [address] [phone] Manjeet Mobley M.D. [address] [place] [phone] Discharge Disposition: Home or Self Care Scheduled Referrals Name Type Priority Associated Diagnoses Order Schedule Otorhinolaryngology office visit (clinic) Outpatient Referral Routine Atypical Facial Pain Cerumen Impacted Right Drip Post Nasal Expected: 06/17/2023 (Approximate), Expires: 07/15/2024 Otorhinolaryngology office visit (clinic) Outpatient Referral Routine Atypical Facial Pain Cerumen Impacted Right Drip Post Nasal Expected: 06/17/2023 (Approximate), Expires: 07/15/2024 documented as of this encounter Visit Diagnoses Diagnosis Atypical Facial Pain- Primary Drip Post Nasal Cerumen Impacted Right documented in this encounter
--- OUTSIDE RECORDS SUMMARY | 2023-05-22 08:40 | XMS_ITS | Encounter Summary ---
Author Name Unknown Organization [facility] Address [address] [place] [address] Care Team Providers Care Translator/Interpreter Name Role Phone Unavailable Primary Care Provider Unavailabl e Reason for Visit * Outpatient (Routine) - Closed Specialty Diagnoses / Procedures Referred By Neetu t Referred To Contact Ophthalmology Kevin Ceja M.D. [address] [place] [phone] [facility] Referral ID Status Reason Start Date Expiration Date Visits Re quested Visits Authorized [id number] Closed 03/16/2023 03/15/2026 1 1 Encounter Details Date Type Department Care Team (Latest Contact Info) Description 04/12/2023 10:30 AM ABRASIVE GRINDER Office Visit Department of Ophthalmology in [place], [place] [address] [place] [phone] Kevin Ceja M.D. 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 - 04/12/2023 10:30 AM CST Dipika Alexis is a 67 y.o. female seen in clinic today for laser followup, L eye. The patient was seen for routine eye exam on 03/02 and was found to have a retinal tear from which she was asymptomatic. She underwent laser retinopexy same day. Since last visit, no new concerns. Retinal detachment risk factors: Trauma: N Previous intraocular surgery/procedures: N High myopia: N Personal history of tear/detachment: N Family history of tear/detachment: N POH: None Current drops: None ASSESSMENT/PLAN # Retinal tear, L eye # Chorioretinal scar, L eye Small superotemporal HST adjacent to a chorioretinal scar well surrounded by laser barricade. No new holes/tears on 360 SD exam. Return as needed if new symptoms arise. Otherwise, recommend yearly dilated eye exams. Retinal detachment warning signs reviewed. # Age related cataracts, both eyes Mild, not visually significant. Observe for now # Non-exudative age-related macular degeneration, R eye Discussed with the patient. Small, non-confluent drusen noted on exam. Recommend annual dilated eyeexam for ongoing monitoring. The patient was understanding and in agreement with this plan. All questions were answered to the best of my ability. This patient was seen with Dr. Reynaga. Kevin Ceja M.D. Pager: [phone] SIVE GRINDER documented in this encounter Plan of Treatment Upcoming Encounters Date Type Department Care Team (Latest Contact Info) Description 06/18/2023 9:00 AM ABRASIVE GRINDER Office Visit Department of Otorhinolaryngology in [address] [phone] Manjeet Mobley M.D. 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
== END 2023-05-22 08:29 | disposition home or self-care (01) ==
PROVIDERS: PCP Nurse Practitioner Family; Visit Provider Nurse Practitioner Family
DX: Z13.220 Encounter for screening for lipoid disorders (principal); Z13.1 Encounter for screening for diabetes mellitus; Z13.0 Encounter for screening for diseases of the blood and blood-forming organs and certain disorders involving the immune mechanism
CPT/HCPCS: 80048; 80061; 85025

== ENCOUNTER 2023-06-21 13:22 | Outpatient (CLI) | payer MEDICARE, BC, SELFPAY ==
--- OUTSIDE RECORDS SUMMARY | 2023-06-21 13:28 | XMS_ITS | Encounter Summary ---
Author Name Unknown Organization [facility] er Address [address] [place] [address] Care Team Providers Care Property Staff Accountant Name Role Phone Arden Solis MD Primary Care Provider + [phone] Reason for Visit * Auth/Cert (Routine) Specialty [...] Expiration Date Visits Re quested Visits Authorized [id number] 1 1 Encounter Details Date Type Department Care Team (Late st Contact Info) Description 03/09/2023 12:35 PM CDT - 03/09/2023 4:25 PM CDT Surgery [facility] Operating Room [address] [place] [address] Lalit Sorensen, DPYeimi [address] [place] [phone] HAMMERTOE REPAIR 2nd toe left foot Surgery Details Date/Time Status Location OR Service Patient Class Case Cl ass Case Type Trauma Case? 03/09/23 12:35 PM Posted [facility] F - Elective Panel 1 [...] and Family Once a week 11/14/2018 Attends Sikh Services Never 11/14 Active Member of Clubs [...] Date Recorded PHQ-9 Total Score 0 10/22/2020 [facility] - Occupational [...] PM CDT Operative Note Date: 03/09/2023 Location: [facility] OR Name: Dipika Alexis, : 1955, Diagnosis [...] II Estimated Blood Loss: 5 mL Staff: Technical Support Technician: Lidya Greene Relief Technical Support Technician: DARIUSZ Lowe Scrub Person: Caterina Patterson; Aurora Carvalho Indications: Dipika Alexis is an 67 y.o. female who is having surgery for Hammertoe of second toe of left foot [M20.42] Bunion of left foot [M21.612]. Rolling Mill Operator Helper Role: None Intraoperative Findings: Hallux rigidus left , hds 2nd toe left foot , plantar plate tear 2nd mpj left foot Implants Type Name Action Serial No. IMPLANT MEDIUM CANNULATED PHALINX VAISHNAVI - [id number] Implanted Procedure Details: Patient brought the operating [...] 03/09/2023 12:36 PM CDT Date: 03/09/2023 Location: [facility] OR Name: Dipika Alexis, : 1955, Diagnosis [...] II Estimated Blood Loss: 5 mL Staff: Technical Support Technician: Lidya Greene Relief Technical Support Technician: DARIUSZ Lowe Scrub Person: Caterina Patterson; Aurora [...] was used. Lalit Sorensen DPYeimi IMG FLUOROSCOPY [place] OCEDURES documented in [...] (New Bag - Provider: Marcel F. Bladimir, MUSICAL INSTRUMENTS ASSEMBLER, GLUER MACHINE SETUP OPERATOR)1453 (Anesthesia Volume Adjustment - Provider: FREDDIE Machado,MUSICAL INSTRUMENTS ASSEMBLER,GLUER MACHINE SETUP OPERATOR) PRN Medication Order 03/07/2023 03/08/2023 03/09/2023 Bupivacaine [...] Preprocedure documented in this encounter Care Teams Property Staff Accountant Relationship Specialty Start Date End Date Arden Solis MD [address] [facility] [address] [place] [phone] PCP - General 08/23/21 documented as of this encounter
--- OUTSIDE RECORDS SUMMARY | 2023-06-21 13:28 | XMS_ITS | Clinical Summary ---
Author Name Unknown Organization [facility] er Address [address] [place] [address] Care Team Providers Care Pasteurizer Helper Name Role Phone Arden Solis MD Primary Care Provider [phone] Allergies No known active allergies Medications Medication [...] foam daily, and she may obtain this [id number]. If desiring further evaluation could consider dermatology [...] adequate vitamin D supplementation. Hearing loss 05/17/2015 Immunizations Name Administration Dates Next Due Hep [...] and Family Once a week 11/14/2018 Attends Orthodox Services Never 11/14 Active Member of Clubs [...] Date Recorded PHQ-9 Total Score 0 10/22/2020 [facility] Occupat ional Health - Occupational Stress [...] this topic Medical Devices Implanted Type Area Piercer Operator Device Identifier Shelf Expiration Date Model / Serial / Lot Implant Medium Cannulated Suly Hogan - [id number] Implanted:Qty: 1 on 03/09/2023 by Lalit Sorensen DPM at [facility] Left: Foot [id number] / / NA Advance Directives For more information, please contact: [phone] Latest Code Status on File Code Status Date Activated Date Inactivated Comments Full Code 03/09/2023 2:55 PM 03/09/2023 5:54 PM Care Teams Pasteurizer Helper Relationship Specialty Start Date End Date Arden Solis MD [address] [facility] [address] [place] [phone] PCP - General 08/23/21
--- OUTSIDE RECORDS SUMMARY | 2023-06-21 13:28 | XMS_ITS | Encounter Summary ---
Author Name Unknown Organization [facility] er Address [address] [place] [address] Care Team Providers Care Integrated Logistics Operations Manager Name Role Phone Arden Solis MD Primary Care Provider [phone] Encounter Details Date Type Department Care Team [...] and Family Once a week 11/14/2018 Attends Yazidism Services Never 11/14 Active Member of Clubs [...] Date Recorded PHQ-9 Total Score 0 10/22/2020 [facility] - Occupational Stress [...] on filedocumented in this encounter Care Teams Integrated Logistics Operations Manager Relationship Specialty Start Date End Date Arden Solis MD [address] [place] [phone] PCP - General 08/23/21 documented as of this encounter
--- OUTSIDE RECORDS SUMMARY | 2023-06-21 13:29 | XMS_ITS | Encounter Summary ---
Author Name Unknown Organization [facility] er Address [address] [place] [address] Care Team Providers Care Slot Operations Director Name Role Phone Arden Solis MD Primary Care Provider [phone] Reason for Visit * Reason Comments ECG test Encounter Details Date Type Department Care Team (Late st Contact Info) Description 02/21/2023 9:00 AM CDT Procedure visit [facility] [address] [place] [address] Pre-op evaluation Social History Tobacco Use Types [...] and Family Once a week 11/14/2018 Attends Congregational Services Never 11/14 Active Member of Clubs [...] Date Recorded PHQ-9 Total Score 0 10/22/2020 [facility] Occupat ional Health - Occupational [...] lead (02/21/2023) Santiago Baeza MD ECG ORDERABLES [facility] documented in this encounter Visit Diagnoses Diagnosis Pre-op evaluation documented in this encounter Care Teams Slot Operations Director Relationship Specialty Start Date End Date Arden Solis MD [address] [place] [phone] PCP - General 08/23/21 documented as of this encounter
--- OUTSIDE RECORDS SUMMARY | 2023-06-21 13:29 | XMS_ITS ---
Author Name Unknown Organization [facility] Address [address] [place] [address] Care Team Providers Care Batch Unit Treater Name Role Phone Unavailable Unavailable Unavailable Surgery Details Not on file Complications Check Surgery Details section. Procedure Estimated Blood Loss Check Surgery Details section. Procedure Findings Check Surgery Details section. Procedure Specimens Taken Check Surgery Details section.
--- OUTSIDE RECORDS SUMMARY | 2023-06-21 13:29 | XMS_ITS | Encounter Summary ---
Author Name Unknown Organization [facility] Address [address] [place] [address] Care Team Providers Care Personnel Training Officer Name Role Phone Unavailable Primary Care Provider Unavailabl e Reason for Referral * Outpatient (Routine) - Closed Specialty Diagnoses / Procedures Referred By Neetu breen Referred To Contact Ophthalmology Kevin Ceja M.D. [address] [place] [phone] [facility] Referral ID Status Reason Start Date Expiration Date Visits Re quested Visits Authorized [id number] Closed 03/16/2023 03/15/2026 1 1 Scheduling Instructions VTD L eye only ACCOUNTANT Reason for Visit * Reason Comments follow up left eye * Outpatient (Routine) - Closed Specialty Diagnoses / Procedures Referred By Neetu breen Referred To Contact Ophthalmology Kevin Ceja M.D. [address] [place] [phone] [facility] Referral ID Status Reason Start Date Expiration Date Visits Re quested Visits Authorized [id number] Closed 03/02/2023 03/01/2026 1 1 Encounter Details Date Type Department Care Team (Latest Contact Info) Description 03/16/2023 8:00 AM FUND ACCOUNTANT Office Visit Department of Ophthalmology in [place], [place] [address] [place] [phone] Kevin Ceja M.D. [address] [place] [phone] Age Related Nuclear Cataract Bilateral (Primary Dx); [...] This patient was Kevin Ceja M.D. Pager: [phone] ACCOUNTANT documented in this encounter Plan of Treatment Upcoming Encounters Date Type Department Care Team (Latest Contact Info) Description 09/06/2023 10:30 AM CDT Diagnostic Department of Otorhinolaryngology in [address] [phone] Manjeet Mobley M.D. [address] [place] [phone] Aleksandr Cedillo Au.D. [address] [place] [phone] Discharge Disposition: Home or Self Care 09/06/2023 11:30 AM CDT Office Visit Department of Otorhinolaryngology in [address] [phone] Manjeet Mobley M.D. 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
--- OUTSIDE RECORDS SUMMARY | 2023-06-21 13:29 | XMS_ITS | Encounter Summary ---
Author Name Unknown Organization [facility] Address [address] [place] [address] Care Team Providers Care Construction Framer Name Role Phone Unavailable Primary Care Provider Unavailabl e Reason for Visit * Outpatient (Routine) - Closed Specialty Diagnoses / Procedures Referred By Neetu t Referred To Contact Ophthalmology Kevin Ceja M.D. [address] [place] [phone] [facility] Referral ID Status Reason Start Date Expiration Date Visits Re quested Visits Authorized [id number] Closed 03/16/2023 03/15/2026 1 1 Encounter Details Date Type Department Care Team (Latest Contact Info) Description 04/12/2023 10:30 AM TURBINATED BONE GRINDER Office Visit Department of Ophthalmology in [place], [place] [address] [place] [phone] Kevin Ceja M.D. [address] [place] [phone] Age Related Nuclear Cataract Bilateral (Primary Dx); [...] with Dr. Reynaga. Kevin Ceja M.D. Pager: [phone] INATED BONE GRINDER documented in this encounter Plan of Treatment Upcoming Encounters Date Type Department Care Team (Latest Contact Info) Description 09/06/2023 10:30 AM CDT Diagnostic Department of Otorhinolaryngology in [address] [phone] Manjeet Mobley M.D. [address] [place] [phone] Aleksandr Cedillo Au.D. [address] [place] [phone] Discharge Disposition: Home or Self Care 09/06/2023 11:30 AM CDT Office Visit Department of Otorhinolaryngology in [place], [place] [address] [place] [phone] Manjeet Mobley M.D. 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
--- OUTSIDE RECORDS SUMMARY | 2023-06-21 13:29 | XMS_ITS | Encounter Summary ---
Author Name Unknown Organization [facility] er Address [address] [place] [address] Care Team Providers Care Marketing Summer Intern Name Role Phone Arden Solis MD Primary Care Provider + [phone] Reason for Visit * Auth/Cert (Routine) Specialty [...] Expiration Date Visits Re quested Visits Authorized [id number] 1 1 Encounter Details Date Type Department Care Team (Late st Contact Info) Description 03/09/2023 12:35 PM CDT Anesthesia Event [facility] Operating Room [address] [place] [phone] Berto Tirado MD [address] [place] [phone] Marcel Garrison APRN, SILK SPOTTER [address] [place] [phone] Anesthesia Record Procedure Summary Procedure Name [...] and Family Once a week 11/14/2018 Attends Yarsanism Services Never 11/14 Active Member of Clubs [...] Date Recorded PHQ-9 Total Score 0 10/22/2020 [facility] Occupat ional Health - [...] Procedure Summary Date: 03/09/23 Room / Location: [facility] OR [address] [place] [address] Operating Room Anesthesia Start: 1235 Anesthesia Stop: [...] risks discussed with patient. Plan discussed with SILK SPOTTER. Initial evaluation reviewed, no significant interval change. [...] mg documented in this encounter Care Teams Marketing Summer Intern Relationship Specialty Start Date End Date Arden Solis MD [address] [phone] PCP - General 08/23/21 documented as of this encounter
--- OUTSIDE RECORDS SUMMARY | 2023-06-21 13:29 | XMS_ITS | Encounter Summary ---
Author Name Unknown Organization [facility] Address [address] [place] [address] Care Team Providers Care Bindery Library Technical Assistant Name Role Phone Unavailable Primary Care Provider [...] AM CDT Diagnostic Department of Otorhinolaryngology in [address] [phone] Manjeet Mobley M.D. [address] [place] [phone] Aleksandr Cedillo Au.D. [address] [place] [phone] Discharge Disposition: Home or Self Care 09/06/2023 11:30 AM CDT Office Visit Department of Otorhinolaryngology in [address] [phone] Manjeet Mobley M.D. [address] [facility] [place] [phone] documented as of this encounter Procedures Procedure [...]
--- OUTSIDE RECORDS SUMMARY | 2023-06-21 13:29 | XMS_ITS | Encounter Summary ---
Author Name Unknown Organization [facility] Address [address] [place] [address] Care Team Providers Care Realtime Captioner Name Role Phone Unavailable Primary Care Provider Unavailabl e Reason for Referral * Outpatient (Routine) - Closed Specialty Diagnoses / Procedures [facility] Referred To Contact Otorhinolaryngology Diagnoses Atypical Facial Pain Cerumen Impacted Right Drip Post Nasal Manjeet Mobley M.D. [address] [place] [phone] [facility] Referral ID Status Reason Start Date Expiration Date Visits Re quested Visits Authorized [id number] Closed 04/16/2023 04/15/2026 1 1 T OFFICE ATTENDANT * Outpatient (Routine) - Closed Specialty Diagnoses / Procedures [facility] Referred To Contact Otorhinolaryngology Diagnoses Atypical Facial Pain Cerumen Impacted Right Drip Post Nasal Manjeet Mobley M.D. [address] [place] [phone] [facility] Referral ID Status Reason Start Date Expiration Date Visits Re quested Visits Authorized [id number] Closed 04/16/2023 04/15/2026 1 1 T OFFICE ATTENDANT Reason for Visit * Reason Comments Sinusitis * Appointment Request (Routine) - Closed Specialty Diagnoses / Procedures Referred By Contac t Referred To Contact Otorhinolaryngology Referral ID Status Reason Start Date Expiration Date Visits Re quested Visits Authorized [id number] Closed 01/30/2023 01/30/2024 1 1 Encounter Details Date Type Department Care Team (Latest Contact Info) Description 04/16/2023 8:30 AM FRONT OFFICE ATTENDANT Comprehensive Visit Department of Otorhinolaryngology in [address] [phone] Manjeet Mobley M.D. [address] [place] [phone] Atypical Facial Pain (Primary Dx); Drip [...] Manjeet Mobley M.D. - 04/16/2023 8:30 AM FRONT OFFICE ATTENDANT #1 Atypical Facial Pain Suspect separate from [...] consider options including Atrovent nasal spray or [facility] triple nasal spray trial.No history of acid reflux or heartburn symptoms #3 Cerumen Impacted Right I was unable to safely debride far medial adherent firm cerumen. Visible posterior TM appears normal and mobile. Recommend cerumen drops daily for 7 days, weekly thereafter. Recheck two-month to ensure normal TM and cerumen resolution. T OFFICE ATTENDANT documented in this encounter Consult Notes * [...] postnasal drainage. 2020October 25 was seen at [facility] by ENT nurse practitioner with diagnosis of [...] until ENT follow-up, Starting Sun04/16/2023, Until Sun04/23/2023, [facility] Other orders - Otorhinolaryngology office visit [...] consider options including Atrovent nasal spray or [facility] triple nasal spray trial.No history of acid reflux or heartburn symptoms #3 Cerumen Impacted Right I was unable to safely debride far medial adherent firm cerumen. Visible posterior TM appears normal and mobile. Recommend cerumen drops daily for 7 days, weekly thereafter. Recheck two-month to ensure normal TM and cerumen resolution. T OFFICE ATTENDANT documented in this encounter Plan of Treatment Upcoming Encounters Date Type Department Care Team (Latest Contact Info) Description 09/06/2023 10:30 AM CDT Diagnostic Department of Otorhinolaryngology in [address] [phone] Manjeet Mobley M.D. [address] [place] [phone] Aleksandr Cedillo Au.D. [address] [place] [phone] Discharge Disposition: Home or Self Care 09/06/2023 11:30 AM CDT Office Visit Department of Otorhinolaryngology in [address] [phone] Manjeet Mobley M.D. [address] [place] [phone] Scheduled Referrals Name Type Priority Associated Diagnoses [...]
--- OUTSIDE RECORDS SUMMARY | 2023-06-21 13:29 | XMS_ITS | Encounter Summary ---
Author Name Unknown Organization [facility] Address [address] [place] [address] Care Team Providers Care Elastic Assembler Name Role Phone Unavailable Primary Care Provider Unavailabl e Reason for Referral * Outpatient (Routine) - Closed Specialty Diagnoses / Procedures Referred By Neetu t Referred To Contact Procedures Prophylaxis of Retinal Detachment, Laser - OS - Left Eye Kevin Ceja M.D. [address] [place] [phone] [facility] Referral ID Status Reason Start Date Expiration Date Visits Re quested Visits Authorized [id number] Closed 03/02/2023 03/01/2024 1 1 * Outpatient (Routine) - Closed Specialty Diagnoses / Procedures Referred By Neetu breen Referred To Contact Ophthalmology Kevin Ceja M.D. [address] [place] [address] [facility] Referral ID Status Reason Start Date Expiration Date Visits Re quested Visits Authorized [id number] Closed 03/02/2023 03/01/2026 1 1 Scheduling Instructions VTD L eye only Reason for Visit * Outpatient (Routine) - Closed Specialty Diagnoses / Procedures Referred By Contcabrera t Referred To Contact Procedures Prophylaxis of Retinal Detachment, Laser - OS - Left Eye Kevin Ceja M.D. [address] [place] [address] [facility] Referral ID Status Reason Start Date Expiration Date Visits Re quested Visits Authorized [id number] Closed 03/02/2023 03/01/2024 1 1 Encounter Details Date Type Department Care Team (Latest Contact Info) Description 03/02/2023 3:30 PM CDT Comprehensive Visit Department of Ophthalmology in [place], [place] [address] [place] [phone] Kevin Ceja M.D. [address] [place] [phone] Age Related Nuclear Cataract Bilateral (Primary Dx); [...] eye exam earlier today by an outside call center professional and was noted to have a possible [...] and Dr. Castro. Kevin Ceja M.D. Pager: [phone] Associated attestation - Zabrina Castro M.D., Ph.D. - 03/02/2023 9:35 PM CDT Images from the original note were not included. I have reviewed the history, findings, diagnosis, and management plan as described above, in accordance with my role as attending airframe technician. I have also personally examined this patient. I am in agreement with diagnosis and management plan outlined above by Dr. Ceja. Zabrina Catsro MD, PhD Hotel Assistant Manager Press Operator [employer] Vitreoretinal Surgery & Diseases [facility], Department of Ophthalmology [address] [place] [phone] documented in this encounter Plan of Treatment Upcoming Encounters Date Type Department Care Team (Latest Contact Info) Description 09/06/2023 10:30 AM CDT Diagnostic Department of Otorhinolaryngology in [address] [phone] Manjeet Mobley M.D. [address] [place] [phone] Aleksandr Cedillo Au.D. [address] [place] [phone] Discharge Disposition: Home or Self Care 09/06/2023 11:30 AM CDT Office Visit Department of Otorhinolaryngology in [place], [place] [address] [phone] Manjeet Mobley M.D. [address] [place] [phone] Scheduled Referrals Name Type Priority Associated Diagnoses [...]
--- OUTSIDE RECORDS SUMMARY | 2023-06-21 13:29 | XMS_ITS | Encounter Summary ---
Author Name Unknown Organization [facility] er Address [address] [place] [address] Care Team Providers Care Choir Teacher Name Role Phone Arden Solis MD Primary Care Provider + [phone] Reason for Visit * Auth/Cert (Routine) Specialty [...] Expiration Date Visits Re quested Visits Authorized [id number] 1 1 Encounter Details Date Type Department Care Team (Latest Contact Info) Description 03/09/2023 10:41 AM CDT - 03/09/2023 3:54 PM CDT Hospital Encounter [facility] Hospital Operating Room [address] [place] [address] Lalit Sorensen, DPYeimi [address] [place] [phone] Hav (hallux abducto valgus), left (Primary Dx) [...] and Family Once a week 11/14/2018 Attends [employer] Services Never 11/14 Active Member of Clubs [...] Date Recorded PHQ-9 Total Score 0 10/22/2020 [facility] of Occupat ional Health - Occupational Stress [...] cannot be sent through Care Everywhere. * [facility] GRAEME PODIATRY - AFTER YOUR FOOT/ANKLE [...] PM CDT Operative Note Date: 03/09/2023 Location: [facility] OR Name: Dipika Alexis, : 1955, [...] II Estimated Blood Loss: 5 mL Staff: Sample Prep Technician: Lidya Amaro Sample Prep Technician: DARIUSZ Lowe Scrub Person: Caterina Patterson; Aurora Cunninghamcheli Indications: Dipika Alexis is an 67 y.o. female who is having surgery for Hammertoe of second toe of left foot [M20.42] Bunion of left foot [M21.612]. Tire Bladder Maker Role: None Intraoperative Findings: Hallux rigidus left , hds 2nd toe left foot , plantar plate tear 2nd mpj left foot Implants Type Name Action Serial No. IMPLANT MEDIUM CANNULATED PHALINX HAMMERTOE - [id number] Implanted Procedure Details: Patient brought the operating [...] 03/09/2023 12:36 PM CDT Date: 03/09/2023 Location: [facility] OR Name: Dipika Alexis, : 1955, [...] II Estimated Blood Loss: 5 mL Staff: Sample Prep Technician: Lidya Greene Relief Sample Prep Technician: DARIUSZ Lowe Scrub Person: Caterina Patterson; [...] used. Lalit Jimenez Edu DPYeimi IMG FLUOROSCOPY [place] OCEDURES documented in this encounter Visit Diagnoses [...] to gravity)1407 (New Bag - Provider: Marcel Garrison APRN, JOSEFINA)1453 (Anesthesia Volume Adjustment - [...] Preprocedure documented in this encounter Care Teams Choir Teacher Relationship Specialty Start Date End Date Arden Solis MD [address] [place] [address] PCP - General 08/23/21 documented as of this encounter
--- OUTSIDE RECORDS SUMMARY | 2023-06-21 13:29 | XMS_ITS | Encounter Summary ---
Author Name Unknown Organization [facility] Address [address] [place] [address] Care Team Providers Care Cloud Architect Name Role Phone Unavailable Primary Care Provider Unavailabl e Encounter Details Date Type Department Care Team (Latest Contact Info) Description 04/16/2023 9:05 AM OPERATIONS MANAGER/COORDINATOR Ancillary Procedure Department of Otorhinolaryngology Social History [...] AM CDT Diagnostic Department of Otorhinolaryngology in [place], [place] [address] [place] [phone] Manjeet Mobley M.D. [address] [place] [phone] Aleksandr Cedillo Au.D. [address] [place] [phone] Discharge Disposition: Home or Self Care 09/06/2023 11:30 AM CDT Office Visit Department of Otorhinolaryngology in [place], [place] [address] [place] [phone] Mnajeet Mobley M.D. [address] [place] [phone] documented as of this encounter Procedures Procedure Name Priority Date/Time Associated Diagnosis Comments OTORHINOLARYNGOLOGY IMAGE EXAM Routine 04/16/2023 9:05 AM OPERATIONS MANAGER/COORDINATOR documented in this encounter Results * Otorhinolaryngology Image Exam-Otorhinolaryngology Image Exam (04/16/2023 9:05 AM OPERATIONS MANAGER/COORDINATOR) 04/16/2023 9:04 AM OPERATIONS MANAGER/COORDINATOR Narrative IIMS - 04/16/2023 9:41 AM OPERATIONS MANAGER/COORDINATOR This order has been created and auto-finalized to support the import of images acquired without order. The clinical documentation to support these images can be found on the encounter that produced images. Provider Not In System IMG NON RAD IMAGI NG PROCEDURES IIMS NA documented in this encounter Visit Diagnoses Not on filedocumented in this encounter
--- OUTSIDE RECORDS SUMMARY | 2023-06-21 13:29 | XMS_ITS | Encounter Summary ---
Author Name Unknown Organization [facility] Address [address] [place] [address] Care Team Providers Care Commodity Director Name Role Phone Unavailable Primary Care Provider Unavailabl e Reason for Referral * Outpatient (Routine) - Authorized Specialty Diagnoses / Procedures Referred By Neetu breen Referred To Contact Otorhinolaryngology Diagnoses Cerumen Impacted Right Drip Post Nasal Tinnitus Subjective Left Manjeet Mobley M.D. [address] [place] [address] [facility] Region Referral ID Status Reason Start Date Expiration Date V isits Requested Visits Authorized [id number] Authorized 06/18/2023 12/17/2024 1 1 GER MACHINE Reason for Visit * Outpatient (Routine) - Closed Specialty Diagnoses / Procedures Referred By Neetu breen Referred To Contact Otorhinolaryngology Diagnoses Atypical Facial Pain Cerumen Impacted Right Drip Post Nasal Manjeet Mobley M.D. [address] [place] [address] [facility] Region Referral ID Status Reason Start Date Expiration Date Visits Re quested Visits Authorized [id number] Closed 04/16/2023 04/15/2026 1 1 Encounter Details Date Type Department Care Team (Latest Contact Info) Description 06/18/2023 9:00 AM MANAGER MACHINE Office Visit Department of Otorhinolaryngology in [place], [place] [address] Manjeet Mobley M.D. [address] [place] [phone] Tinnitus Subjective Left (Primary Dx); Cerumen Impacted Right; Drip Post Nasal Discharge Disposition: Home or Self Care Social [...] as of this encounter Progress Notes * Manjeet Mobley M.D. - 06/18/2023 9:00 AM CST SUBJECTIVE CHIEF COMPLAINT/REASON FOR VISIT Dipika Alexis is a very pleasant 67 y.o. female who presents for the following: No chief complaint on file.. HISTORY OF PRESENT ILLNESS Ms. Alexis returns for completion debridement right dense cerumen impaction. She does wear bilateral hearing aids. She has been using ear wax drops. She reports today new onset left tinnitus intermittent, estimating present 25% of the time, nonpulsatile. She has not aware of any change in hearing. No vertigo or imbalance. OBJECTIVE PHYSICAL EXAMINATION Appears well, no distress --- PROCEDURE: CERUMEN DEBRIDEMENT - bilateral Right far medial complete cerumen impaction, left scant mid canal, both debrided under binocular microscopy with suction 7. Underlying canals normal --- TMs normal ASSESSMENT / PLAN #1 Cerumen Impacted Right #2 Tinnitus Subjective Left #3 Atypical Facial Pain #4 Drip Post Nasal - mometasone 0.033 %-ipratropium 0.02 %-diphenhydramine 0.033 % nasal spray; Administer 2 sprays into each nostril 2 (two) times a day. Mix ingredients as directed prior to use., Starting 06/18/2023, Normal Other orders - Otorhinolaryngology office visit (clinic) - Otorhinolaryngology office visit (clinic) - Otorhinolaryngology office visit (clinic); Future; Expected date: After tests - Audiology evaluation; Future; Expected date: 06/18/2023 #1 Cerumen Impacted Right Debridement completed. Normal TM #2 Tinnitus Subjective Left New onset this since last visit, discussed implications unilateral tinnitus. Discussed option MRI to rule retrocochlear lesion, with recent onset I think audiogram would be most appropriate 1st. She is agreeable. Will follow up to review audiogram when available, she will monitor in the meantime whether left tinnitus is persistent or if right tinnitus develops. Tinnitus booklet provided and discussed #3 Drip Post Nasal No improvement with daily Flonase and saline irrigations. She ran out of Flonase. She would like totry another nasal spray, triple nasal spray sent to [place] mail order pharmacy. If fails, consider again trial acid reflux medication although she is asymptomatic. GER MACHINE documented in this encounter Plan of Treatment Upcoming Encounters Date Type Department Care Team (Latest Contact Info) Description 09/06/2023 10:30 AM CDT Diagnostic Department of Otorhinolaryngology in [address] [phone] Manjeet Mobley M.D. [address] [place] [phone] Aleksandr Cedillo Au.D. [address] [place] [phone] Discharge Disposition: Home or Self Care 09/06/2023 11:30 AM CDT Office Visit Department of Otorhinolaryngology in [address] [phone] Manjeet Mobley M.D. [address] [place] [phone] Scheduled Orders Name Type Priority Associated Diagnoses Orde r Schedule Audiology evaluation Audiology Routine Cerumen Impacted Right Tinnitus Subjective Left Expected: 06/18/2023 (Approximate), Expires: 09/15/2024 Scheduled Referrals Name Type Priority Associated Diagnoses Order Schedule Otorhinolaryngology office visit (clinic) Outpatient Referral Routine Cerumen Impacted Right Drip Post Nasal Tinnitus Subjective Left 1 Occurrences starting 06/18/2023 until 09/15/2024 documented as of this encounter Visit Diagnoses Diagnosis Tinnitus Subjective Left- Primary Cerumen Impacted Right Drip Post Nasal documented in this encounter
--- OUTSIDE RECORDS SUMMARY | 2023-06-21 13:29 | XMS_ITS | Referral Summary ---
Author Name Unknown Organization [facility] Address [address] [place] [address] Care Team Providers Care Quarter Trimmer Name Role Phone Unavailable Primary Care Provider Unavailabl e Source Comments Patient records contain information from all sites at [facility]. For routine questions regarding patient records, call [phone] during business hours, M-F 8:00 AM - 5:00 PM Central Time. Record requests for emergency care only can be directed to [phone] at any time.[facility] Encounters Date Type Department Care Team Description 06/18/2023 9:00 AM BRANCH ACCOUNT MANAGER Office Visit Department of Otorhinolaryngology in [address] [phone] Manjeet Mobley M.D. Tinnitus Subjective Left (Primary Dx); Cerumen Impacted Right; Drip Post Nasal Discharge Disposition: Home or Self Care 04/16/2023 9:05 AM BRANCH ACCOUNT MANAGER Ancillary Procedure Department of Otorhinolaryngology 04/16/2023 8:30 AM BRANCH ACCOUNT MANAGER Comprehensive Visit Department of Otorhinolaryngology in [address] [phone] Manjeet Mobley M.D. Atypical Facial Pain (Primary Dx); Drip Post Nasal; Cerumen Impacted Right Discharge Disposition: Home or Self Care 04/12/2023 10:30 AM BRANCH ACCOUNT MANAGER Office Visit Department of Ophthalmology in [place], [place] [address] [place] [address] Kevin Ceja M.D. 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 0 Active loratadine-pseudoeph edrine (CLARITIN-D 12-hour) 5-120 mg per 12 hr [...] chloride-sodium bicarbonate (Neilmed Sinus Rinse Complete) nasal rinseIndications:Dri p Post Nasal Administer 1 Application into each nostril 2 (two) times a day. 1 each 0 04/16/2023 Active fluticasone propionate (FLONASE) 50 mcg/actuation nasal sprayIndications:Dri p Post Nasal Administer 2 sprays into each nostril daily. 16 g 11 04/16/2023 Active Additional Information Patient not taking.Reported on 06/18/2023 omega 0-wpj-sbp-fish oil 1,000 mg (120 mg-180 mg) capsule Take 2 capsules by mouth daily. 0 Active mometasone 0.033 %-ipratropium 0.02 %-diphenhydramine 0.033 % nasal sprayIndications:Dri p Post Nasal Administer 2 sprays into each nostril 2 (two) times a day. Shake well prior to each use. 28 mL 11 06/18/2023 Active Active Problems No known active problems Social [...] AM CDT Diagnostic Department of Otorhinolaryngology in [address] [phone] Manjeet Mobley M.D. [address] [place] [phone] Aleksandr Cedillo Au.D. [address] [place] [phone] Discharge Disposition: Home or Self Care 09/06/2023 11:30 AM CDT Office Visit Department of Otorhinolaryngology in [address] [phone] Manjeet Mobley M.D. [address] [place] [phone] Procedures Procedure Name Priority Date/Time Associated Diagnosis Comments OTORHINOLARYNGOLOGY IMAGE EXAM Routine 04/16/2023 9:05 AM BRANCH ACCOUNT MANAGER from Last 3 Months Results * Otorhinolaryngology Image Exam-Otorhinolaryngology Image Exam (04/16/2023 9:05 AM BRANCH ACCOUNT MANAGER) 04/16/2023 9:04 AM BRANCH ACCOUNT MANAGER Narrative IIMS - 04/16/2023 9:41 AM BRANCH ACCOUNT MANAGER This order has been created and auto-finalized to support the import of images acquired without order. The clinical documentation to support these images can be found on the encounter that produced images. Provider Not In System IMG NON RAD IMAGI NG PROCEDURES IIMS NA from Last 3 Months
--- OUTSIDE RECORDS SUMMARY | 2023-06-21 13:29 | XMS_ITS | Encounter Summary ---
Author Name Unknown Organization [facility] Address [address] [place] [address] Care Team Providers Care Technical Applications Scientist Name Role Phone Unavailable Primary Care Provider Unavailabl e Reason for Referral * Outpatient (Routine) - Authorized Specialty Diagnoses / Procedures Referred By Neetu t Referred To Contact Ophthalmology Diagnoses Tear Horseshoe Without Retinal Detachment Left Marilee Thomas O.D. [address], [place] [address] [facility] Referral ID Status Reason Start Date Expiration Date V isits Requested Visits Authorized [id number] Authorized 03/02/2023 03/01/2024 1 1 Encounter Details Date Type Department Care Team (Late st Contact Info) Description 03/02/2023 Community Orders [facility] [address] [place] [phone] Marilee Thomas O.D. [address], [place] [address] Tear Horseshoe Without Retinal Detachment Left (Primary [...] AM CDT Diagnostic Department of Otorhinolaryngology in [address] [phone] Manjeet Mobley M.D. [address] [place] [phone] Aleksandr Cedillo Au.D. [address] [place] [phone] Discharge Disposition: Home or Self Care 09/06/2023 11:30 AM CDT Office Visit Department of Otorhinolaryngology in [address] [phone] Manjeet Mobley M.D. [address] [place] [phone] Scheduled Referrals Name Type Priority Associated Diagnoses Order Schedule Ophthalmology Referral Outpatient Referral Routine Tear Horseshoe Without Retinal Detachment Left Expected: 03/02/2023 (Approximate), Expires: 06/02/2024 documented as of this encounter Visit Diagnoses Diagnosis Tear Horseshoe Without Retinal Detachment Left- Primary documented in this encounter
--- OUTSIDE RECORDS SUMMARY | 2023-06-21 13:29 | XMS_ITS | Encounter Summary ---
Author Name Unknown Organization [facility] er Address [address] [place] [address] Care Team Providers Care Store Cashier Name Role Phone Arden Solis MD Primary Care Provider [phone] Encounter Details Date Type Department Care Team (Late st Contact Info) Description 02/21/2023 8:00 AM CDT Clinical Support SE Anesthesia [address] [place], [place] [phone] Social History Tobacco Use Types Packs/Day Years [...] and Family Once a week 11/14/2018 Attends [employer] Never 11/14 Active Member of Clubs [...] Date Recorded PHQ-9 Total Score 0 10/22/2020 [facility] of Occupat ional Health - Occupational Stress [...] Dr. Sorensen on left foot. will be driver service technician day of surgery. Patient denied cardiac and [...] on filedocumented in this encounter Care Teams Store Cashier Relationship Specialty Start Date End Date Arden Solis MD [address] [place] [phone] PCP - General 08/23/21 documented as of this encounter
--- OUTSIDE RECORDS SUMMARY | 2023-06-21 13:29 | XMS_ITS | Encounter Summary ---
Author Name Unknown Organization [facility] Address [address] [place] [address] Care Team Providers Care Paper Bag Inspector Name Role Phone Unavailable Primary Care Provider Unavailabl e Reason for Visit * Reason Onset Date Comments Triage 03/02/2023 uec Encounter Details Date Type Department Care Team (Late st Contact Info) Description 03/02/2023 Clinical Communication Department of Ophthalmology in [place], [place] [address] [place] [phone] Prescheduling, Provider Triage (uec) Social History Tobacco [...] AM CDT Diagnostic Department of Otorhinolaryngology in [place], [place] [address] [place] [phone] Manjeet Mobley M.D. [address] [place] [phone] Aleksandr Cedillo Au.D. [address] [place] [phone] Discharge Disposition: Home or Self Care 09/06/2023 11:30 AM CDT Office Visit Department of Otorhinolaryngology in [place], [place] [address] [place] [phone] Manjeet Mobley M.D. [address] [place] [phone] documented as of this encounter Visit Diagnoses Not on filedocumented in this encounter
--- OUTSIDE RECORDS SUMMARY | 2023-06-21 13:29 | XMS_ITS | Clinical Summary ---
Author Name Unknown Organization [facility] Address [address] [place] [address] Care Team Providers Care Keyboard Instrument Repairer Name Role Phone Unavailable Primary Care Provider Unavailabl e Source Comments Patient records contain information from all sites at [facility]. For routine questions regarding patient records, call [phone] during business hours, M-F 8:00 AM - 5:00 PM Central Time. Record requests for emergency care only can be directed to [phone] at any time.[facility] Allergies No known active allergies Medications [...] chloride-sodium bicarbonate (Neilmed Sinus Rinse Complete) nasal rinseIndications:Navdeep garcia Post Nasal Administer 1 Application into each nostril 2 (two) times a day. 1 each 0 04/16/2023 Active fluticasone propionate (FLONASE) 50 mcg/actuation nasal sprayIndications:Dri p Post Nasal Administer 2 sprays into each nostril daily. 16 g 11 04/16/2023 Active Additional Information Patient not taking.Reported on 06/18/2023 omega 1-vtc-lbk-fish oil 1,000 mg (120 mg-180 mg) capsule Take 2 capsules by mouth daily. 0 Active mometasone 0.033 %-ipratropium 0.02 %-diphenhydramine 0.033 % nasal sprayIndications:Dri p Post Nasal Administer 2 sprays into each nostril 2 (two) times a day. Shake well prior to each use. 28 mL 11 06/18/2023 Active Active Problems No known active problems Encounters Date Type Department Care Team Description 06/18/2023 9:00 AM VP COMMUNICATIONS Office Visit Department of Otorhinolaryngology in [address] [phone] Manjeet Mobley M.D. Tinnitus Subjective Left (Primary Dx); Cerumen Impacted Right; Drip Post Nasal Discharge Disposition: Home or Self Care 04/16/2023 9:05 AM VP COMMUNICATIONS Ancillary Procedure Department of Otorhinolaryngology 04/16/2023 8:30 AM VP COMMUNICATIONS Comprehensive Visit Department of Otorhinolaryngology in [address] [phone] Manjeet Mobley M.D. Atypical Facial Pain (Primary Dx); Drip Post Nasal; Cerumen Impacted Right Discharge Disposition: Home or Self Care 04/12/2023 10:30 AM VP COMMUNICATIONS Office Visit Department of Ophthalmology in [place], [place] [address] [place] [address] Kevin Ceja M.D. 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 [address] [place] [phone] Aleksandr Cedillo Au.D. [address] [place] [phone] Discharge Disposition: Home or Self Care 09/06/2023 11:30 AM CDT Office Visit Department of Otorhinolaryngology in [address] [phone] Manjeet Mobley M.D. [address] [place] [phone] Health Maintenance Due Date Last Done Comments CT Colonography 1955 Cologuard 1955 Colonoscopy 1955 Colorectal Cancer Screening 1955 FIT 1955 Fasting Glucose for Diabetes Screening 1955 Hepatitis C Screening 1955 COVID-19 Vaccine (#1) 03/10/1956 Zoster Vaccines (2 of 3) 12/28/2015 11/02/2015 Mammogram 04/19/2019 04/19/2018, 10/06, 08/25/1998 Influenza Vaccine (#1) 2023 Depression Screening (Annual PHQ-2) 05/07/2023 Fall Risk Screen (Annual) 05/07/2023 DTaP,Tdap,and Td Vaccines (2 - Td or Tdap) 11/18/2023 11/17/2013, 08/06/2003 Pneumococcal vaccine (65+ years) Completed 04/21/20 22 Procedures Procedure Name Priority Date/Time Associated Diagnosis Comments OTORHINOLARYNGOLOGY IMAGE EXAM Routine 04/16/2023 9:05 AM VP COMMUNICATIONS from Last 3 Months Results * Otorhinolaryngology Image Exam-Otorhinolaryngology Image Exam (04/16/2023 9:05 AM VP COMMUNICATIONS) 04/16/2023 9:04 AM VP COMMUNICATIONS Narrative IIMS - 04/16/2023 9:41 AM VP COMMUNICATIONS This order has been created and auto-finalized to support the import of images acquired without order. The clinical documentation to support these images can be found on the encounter that produced images. Provider Not In System IMG NON RAD IMAGI NG PROCEDURES IIMS NA from Last 3 Months
--- OUTSIDE RECORDS SUMMARY | 2023-06-21 13:29 | XMS_ITS | Encounter Summary ---
Author Name Unknown Organization [facility] Address [address] [place] [address] Care Team Providers Care Index Editor Name Role Phone Arden Solis MD Primary Care Provider [phone] Reason for Visit * Reason Comments Pre-op Exam Encounter Details Date Type Department Care Team (Late st Contact Info) Description 02/21/2023 8:20 AM CDT Consult [facility] [address] [place] [address] Santiago Baeza MD [address] [place] [phone] Pre-op evaluation (Primary Dx) Social [...] and Family Once a week 11/14/2018 Attends [employer] Never 11/14 Active Member of Clubs [...] Date Recorded PHQ-9 Total Score 0 10/22/2020 [facility] - [...] technical, or vocational program Occupational History Occupation: [employer] Tobacco Use Smoking status: Never Smokeless tobacco: [...] lead (02/21/2023) Santiago Baeza MD ECG ORDERABLES [facility] documented in this encounter Visit Diagnoses Diagnosis Pre-op evaluation- Primary documented in this encounter Care Teams Index Editor Relationship Specialty Start Date End Date Arden Solis MD [address] [place] [phone] PCP - General 08/23/21 documented as of this encounter
--- NOTE | 2023-06-21 13:30 | XR_ITS ---
Patient: COLE MEIER Facility:?[facility] Patient ID:?[id number] Site Patient ID:?[id number]. Site :?1955 Study:?DEXA-Bone Density SPINE/BOTH HIPS-06/21/2023 2:09:17 PM Ordering Physician:DE Final Report: DXA BONE MINERAL DENSITY STUDY Reason for exam: Osteoporosis. Current height (in): 68. Weight (lb): 145. Menopause age: 49. Ethnicity: White. 1. Have you had a previous hip or vertebral fracture? No. 2. Have you had any fractures during your adult life which did not result from significant trauma (e.g., auto accident)? No. 3. Did either of your parents have a hip fracture? No. 4. Do you smoke? No. 5. Have you ever taken Glucocorticoids? No. 6. Do you have rheumatoid arthritis? No. 7. Do you have secondary osteoporosis? No. 8. Do you drink 3 or more alcoholic drinks per day? No. 9. Are you being treated for osteoporosis? Yes. 10. Have you ever taken any of the following medications: Actonel, Evista, Fosamax, Miacalcin, Reclast, Boniva, Forteo, HRT (i.e., estrogen/hormone therapy), Protelos, Prolia, Vitamin D, Calcium, other ? please specify. ANSWER: Yes, Actonel (i.e. risedronate), vitamin D, and calcium. 11. Do you have any of the following medical conditions: Anorexia or bulimia, asthma or emphysema, end stage renal disease, hyperparathyroidism, any seizure disorders, cancer, inflammatory bowel diseases, hysterectomy, other ? please specify. ANSWER: No. 12. What was your maximum height (inches)? 68. 13. Do you perform weight bearing exercise regularly? No. 14. Do you regularly consume dairy products? Yes. 15. Do you drink caffeinated beverages? Yes. If female: 16. At what age did your period start? 13. 17. Are you premenopausal? No. 18. How many full-term pregnancies have you had? 2. 19. Have you ever missed your period for more than 6 months in a row (not including or menopause)? No. TECHNIQUE: Bone mineral density study was performed using the [employer]. FINDINGS: The results of the study expressed as bone mineral density (BMD) are as follows: Lumbar spine L1 to L3: BMD: 0.720 g/cm2. T-score: -2.7. Z-score: -0.8 Neck Left: BMD: 0.580 g/cm2. T-score: -2.4. Z-score: -0.8 Right: BMD: 0.536 g/cm2. T-score: -2.8. Z-score: -1.2 Total Left: BMD: 0.735 g/cm2. T-score: -1.7. Z-score: -0.3 Right: BMD: 0.718 g/cm2. T-score: -1.8. Z-score: -0.5 IMPRESSION: Osteoporosis. *Comparison exams done prior to 10/2019 were performed on different unit, [employer]. COMPARISON: Compared with scan of 05/05/2021, the bone mineral density has increased by 4.4 percent at the spine and increased by 9.3 percent at the hip. Dictated by: Santiago Hunter MD @06/26/2023 8:26:55 AM jj/Dictated by: Santiago Hunter MD @ 06/26/2023 8:26:00 AM Signed by:?Santiago Hunter MD @07/01/2023 6:25:45 AM (Electronic Signature)
== END 2023-06-21 13:23 | disposition home or self-care (01) ==
LOC: RAD 13:26
PROVIDERS: PCP Nurse Practitioner Family; Visit Provider Nurse Practitioner Family
DX: M81.0 Age-related osteoporosis without current pathological fracture (principal)
CPT/HCPCS: 77080

== ENCOUNTER 2023-07-03 07:58 | Outpatient (CLI) | payer MEDICARE, BC, SELFPAY ==
--- NOTE | 2023-07-03 08:15 | MM_ITS ---
Patient: COLE MEIER Facility:?[facility] Patient ID:?[id number] Site Patient ID:?[id number]. Site :?1955 Study:?XRay-Breast Bilateral 3D W/CAD-07/03/2023 9:05:56 AM Ordering Physician:Morris Final Report: BILATERAL SCREENING MAMMOGRAM WITH COMPUTER-AIDED DETECTION AND TOMOSYNTHESIS TECHNIQUE: CC and MLO views were obtained. These mammographic images have been obtained using full-field digital technique. These mammographic images were interpreted with the benefit of computer-aided detection. Breast Tomosynthesis was used in this interpretation. COMPARISON FILM: 06/30/22, 06/09/21, 04/19/18. FINDINGS: The breasts are heterogeneously dense, which may obscure small masses. IMPRESSION: There is no radiographic evidence for malignancy. ASSESSMENT: BI-RADS Category 2: Benign RECOMMENDATION: Routine screening mammogram in 1 year. A lay language report of this examination will be provided to the patient. Santiago Hunter M.D. Diagnostic Radiologist [email or web address] DSM/sp R& Transcribed: 3:28 p.m. SP/Dictated by: Santiago Hunter MD @ 07/03/2023 10:32:00 AM Signed by:?Santiago Hunter MD @07/04/2023 5:28:03 AM (Electronic Signature)
== END 2023-07-03 07:59 | disposition home or self-care (01) ==
LOC: MAMMO 07:59
PROVIDERS: PCP Nurse Practitioner Family; Visit Provider Nurse Practitioner Family
DX: Z12.31 Encounter for screening mammogram for malignant neoplasm of breast (principal); R92.2 Inconclusive mammogram
CPT/HCPCS: 77063; 77067

== ENCOUNTER 2024-06-05 08:20 | Outpatient (CLI) | payer MEDICARE, BC, SELFPAY | END 2024-06-05 08:21 | disposition home or self-care (01) | PROVIDERS: PCP Nurse Practitioner Family; Visit Provider Nurse Practitioner Family | DX: E78.9 Disorder of lipoprotein metabolism, unspecified (principal); M81.0 Age-related osteoporosis without current pathological fracture; Z13.0 Encounter for screening for diseases of the blood and blood-forming organs and certain disorders involving the immune mechanism | CPT/HCPCS: 80053; 80061; 85025 ==

== ENCOUNTER 2024-07-30 07:55 | Outpatient (CLI) | payer MEDICARE, BC, SELFPAY ==
--- NOTE | 2024-07-30 08:15 | CRLHL7_ITS ---
For Patients: As a result of the Century Cures Act, medical imaging exams and procedure reports are released immediately into your electronic medical record. You may view this report before your referring provider. If you have questions, please contact your health care provider. BILATERAL SCREENING MAMMOGRAM WITH COMPUTER-AIDED DETECTION AND TOMOSYNTHESIS TECHNIQUE: CC and MLO views were obtained. These mammographic images have been obtained using full-field digital technique. These mammographic images were interpreted with the benefit of computer-aided detection. Breast Tomosynthesis was used in this interpretation. COMPARISON FILM: 07/03/23, 06/30/22, 06/09/21. FINDINGS: The breasts are heterogeneously dense, which may obscure small masses. IMPRESSION: There is no radiographic evidence for malignancy. ASSESSMENT: BI-RADS Category 2: Benign RECOMMENDATION: Routine screening mammogram in 1 year. A lay language report of this examination will be provided to the patient. Santiago Hunter M.D. Diagnostic Radiologist [email or web address] SP/Dictated by: Santiago Hunter MD @ 08/05/2024 11:23:00 AM (Electronically Signed)
== END 2024-07-30 07:56 | disposition home or self-care (01) ==
LOC: MAMMO 07:55
PROVIDERS: PCP Nurse Practitioner Family; Visit Provider Nurse Practitioner Family
DX: Z12.31 Encounter for screening mammogram for malignant neoplasm of breast (principal); R92.333 Mammographic heterogeneous density, bilateral breasts
CPT/HCPCS: 77063; 77067

== ENCOUNTER 2024-09-04 13:58 | Outpatient (CLI) | payer MEDICARE, BC, SELFPAY ==
[2024-09-04 22:03] LABS: Clue Cells No Clue Cells Seen (None Seen); Trichomonas No Trichomonas Seen (None Seen); Yeast No Yeast Seen (None Seen)
== END 2024-09-04 13:59 | disposition home or self-care (01) ==
LOC: KYNREF 13:59
PROVIDERS: PCP Nurse Practitioner Family; Visit Provider Nurse Practitioner Family
DX: N89.8 Other specified noninflammatory disorders of vagina (principal)
CPT/HCPCS: 87210